=== PATIENT | male | born 1960 | race Caucasian/White ===

== ENCOUNTER 2023-10-04 13:15 | Outpatient (REF) | payer OTHER, SELFPAY | END 2023-10-04 13:16 | disposition home or self-care (01) | LOC: LAB 13:15 | PROVIDERS: Visit Provider Surgery | DX: L98.499 Non-pressure chronic ulcer of skin of other sites with unspecified severity (principal) | CPT/HCPCS: 88305 ==

== ENCOUNTER 2024-12-31 12:46 | Outpatient (OUT) | payer MEDICAID, SELFPAY ==
--- NOTE | 2024-12-31 13:08 | CT_ITS ---
The [address] [address] Patient Name: ARANZA MARINELLI MRN: [id number] date: 1960 Sex: M Assigned Patient Location: CT Current Patient Location: CT Accession/Order Number: [id number] Exam Date: 12/31/2024 16:18 Report Date: 12/31/2024 16:29 At the request of: NKECHI TAO Procedure: CT chest wo con CT Chest without contrast TECHNIQUE: Axial imaging with 2-D reconstruction. The CT exam was performed using one or more the following dose reduction techniques: Automated exposure control, adjustment of the MA and/or Kv according to patient size, or use of the iterative reconstruction technique. History: Prior imaging demonstrating a right apex nodule. Current smoker COMPARISON: None THYROID: Unremarkable TRACHEA AND BRONCHI: Patent ESOPHAGUS: Unremarkable. HEART: Within normal limits PERICARDIAL EFFUSION: None CORONARY ARTERY CALCIFICATION: Present MEDIASTINUM: No adenopathy. No pneumoperitoneum. No mediastinal hematoma. PULMONARY MAYLIN: No hilar mass or adenopathy is seen. THORACIC AORTA Unremarkable LUNG NODULE right apical right upper lobe calcified granuloma measuring up to 1.5 cm. Adjacent superior cavitary lesion with a thin wall and scarring measuring up to 1.7 cm. 6 mm adjacent nodularity. Extensive right apical bullous emphysematous changes. Similar findings compared to the CT of the cervical spine 11/26/2024 LUNGS: There are marked emphysema. Posterior basilar scarring/fibrosis. PLEURAL EFFUSION: None PNEUMOTHORAX: No pneumothorax seen. CHEST WALL: No abnormality AXILLA:Unremarkable BONY STRUCTURES Intact UPPER ABDOMEN: Images of the upper abdomen are noncontributory. CT/CT chest wo con IMPRESSION: Redemonstration of calcified granuloma with adjacent cavitary thin-walled lesion and tiny 6 mm nodular density. Right apical scarring and bullous changes. Marked emphysematous changes. Posterior basilar fibrotic changes. No additional lung nodules. Consider six-month short-term follow-up assessment. Impression dictated by: Aranza Ross M.D. 12/31/2024 4:29 PM Dictation Location: [place] [address] Electronically authenticated by: [id number] Y Date: 12/31/2024 16:29
== END 2024-12-31 12:47 | disposition home or self-care (01) ==
LOC: CT 12:49
PROVIDERS: PCP Nurse Practitioner Family; Visit Provider Nurse Practitioner Family
DX: R91.1 Solitary pulmonary nodule (principal)
CPT/HCPCS: 71250

== ENCOUNTER 2025-05-20 09:50 | Outpatient (OUT) | payer OTHER, SELFPAY ==
--- NOTE | 2025-05-20 09:56 | CT_ITS ---
The [address] [address] Patient Name: ARANZA MARINELLI MRN: [id number] date: 1960 Sex: M Assigned Patient Location: CT Current Patient Location: CT Accession/Order Number: [id number] Exam Date: 05/20/2025 10:01 Report Date: 05/20/2025 10:56 At the request of: NKECHI TAO Procedure: CT chest wo con CT CHEST WITHOUT CONTRAST COMPARISON: 12/31/2024 CLINICAL DATA: Follow-up lung nodularity. Spiral axial unenhanced images were obtained through the chest. Images were reviewed using both narrow and wide window settings. This CT exam was performed using one or more following dose reduction techniques: Automated exposure control, adjustment of the mA and/or kV according to patient size, or use of iterative reconstruction technique. The heart is within normal limits for size. There is no pericardial effusion. Minor coronary disease is seen. No aortic aneurysm is identified. There are small amount of plaque at the aortic arch and proximal great vessels. Similar tiny mediastinal lymph nodes are again visualized. Slight thoracolumbar dextroscoliotic curvature is noted. There are tiny endplate spurs. There is obstructive lung disease with airspace lucencies and subpleural blebs. Scarring is again noted at the right apex. There is also associated calcification and a possible cavitary area, unchanged. There is no developing consolidation or pleural effusion. No pneumothorax is seen. There are similar clustered tiny nodular densities and a calcification within the anterior basilar right upper lobe. A tiny nodular density is again seen within the left lower lobe on axial image 51. There is no new nodularity. Limited cuts through the upper abdomen show no contributory findings. CT/CT chest wo con IMPRESSION: ADVANCED OBSTRUCTIVE LUNG DISEASE. RIGHT APICAL SCARRING WITH ASSOCIATED CALCIFICATION AND POSSIBLE CAVITATION, UNCHANGED FROM THE PRIOR. SIMILAR NODULARITY. Impression dictated by: Margaux Aguilar M.D. 05/20/2025 10:56 AM Dictation Location: [place] [address] Electronically authenticated by: [id number] Y Date: 05/20/2025 10:56
--- OUTSIDE RECORDS SUMMARY | 2025-05-20 09:56 | XMS_ITS | CCD ---
Author Organization [facility] Care Team Providers Care Manager Drive Name Role Phone MORRIS MILLER Admitting Unavailable MAR Clay, MORRIS Attending Unavailable NEELIMA, DR MAIER Primary Care Unavailable BEBO BUTLER Consulting Unavailable MAR Clay, MORRIS Consulting Unavailable ELIZABETH BEDOYA Consulting Unavailable NEELIMA, DR MAIER Primary Care Unavailable SHARMA ., DR CONRAD Barker Admitting Unavailable SHARMA ., DR CONRAD Barker Attending Unavailable SHARMA ., DR CONRAD Barker Consulting Unavailable MARKER ., DR BOJORQUEZ Consulting Unavailable ABRIL CORONADO Consulting Unavailable MAR ., MORRIS Consulting Unavailable EMELI .BEVERLY Consulting Unavailable ASHLEY TRIPATHI Consulting Unavailable RONY .HILDA Consulting Unavailel CHAUHAN, DR KERRY Underwood Admitting Unavailel e MIKEC, DR MAIER Primary Care Unavailable GISSEL, DR KERRY Underwood Attending Unavailel e MAR ., MORRIS Attending Unavailable MAR Clay, MORRIS Consulting Unavailable NEELIMA, DR MAIER Primary Care Unavailable MAR Clay, MORRIS Admitting Unavailable NKECHI TAO Primary Care Physician [phone] NO FAMILY, PHYSICIAN Primary Care Provider Unava ilMD Venkat Mathew Attending Provider NO FAMILY, PHYSICIAN Primary Care Unavailable Venkat iMller Attending Unavailable Venkat Miller Admitting Unavailable Venkat MILLER Attending Unavailable NKECHI TAO Referring Unavailable Venkat MILLER Attending Unavailable KARISSA, FELIX Attending Unavailable KARISSA, FELIX Attending Unavailable KARISSA, FELIX Attending Unavailable KARISSA, FELIX Attending Unavailable KARISSA, FELIX Attending Unavailable KARISSA, FELIX Admitting Unavailable KARISSA, FELIX Attending Unavailable KARISSA, FELIX Attending Unavailable KARISSA, FELIX Admitting Unavailable KARISSA, FELIX Attending Unavailable NO PCP, NO PCP Primary Care Unavailable FER MCGOWAN Attending Unavailable Allergies Allergy Classification Reported Allergen(s) Allergy Type Date of Onset Reaction(s) Facility (1 source) No Known Medication Allergies; Translations: [No Known Medication Allergies] Propensity to adverse reactions (disorder) [facility] Repository (1 source) ALLERGIES NOT ON FILE; Translations: [ALLERGIES NOT ON FILE] Propensity to adverse reactions (disorder) [facility] Repository Medications Current Medications Medication Drug Class(es) Dates Sig (Normalized) Sig (Original) benzonatate 200 mg oral capsule (1 source) Non-narcotic Antitussive Start: 09-13-2024 take 1 capsule by mouth three times daily as needed for cough Benzonatate 200 mg capsule Active 200 MG PO Three times daily as needed for cough 30 September 13, 2024 12:00am predniSONE 20 mg oral tablet (1 source) Start: 09-13-2024 take 2 tablets by mouth once daily Prednisone 20 mg tablet Active 20 MG PO .COMPLEX September 13, 2024 12:00am Take 2 tabs po daily x 5 days Problems Problem Classification Problem Date Documented Date Episodic/Chronic Abdominal hernia (7 sources) Bilateral inguinal hernia, without obstruction or gangrene, recurrent; Translations: [Unilateral femoral hernia, without obstruction or gangrene, not specified as recurrent] Onset: 11-03-2022 Episodic Abdominal pain (4 sources) Unspecified abdominal pain; Translations: [Left lower quadrant pain] Onset: 11-30-2022 Episodic Neoplasms of unspecified nature or uncertain behavior (3 sources) Neoplasm of uncertain behavior of skin; Translations: [Neoplasm of uncertain behavior of skin] Onset: 10-04-2023 Episodic Other aftercare (2 sources) Encounter for follow-up examination after completed treatment for conditions other than malignant neoplasm; Translations: [Encounter for follow-up examination after completed treatment for conditions other than malignant neoplasm] Onset: 12-11-2023 Episodic Other aftercare (2 sources) Encounter for other specified surgical aftercare; Translations: [Encounter for other specified surgical aftercare] Onset: 12-11-2023 Episodic Other nervous system disorders (2 sources) Other acute postprocedural pain; Translations: [Other acute postprocedural pain] Onset: 10-27-2023 Episodic Other non-epithelial cancer of skin (4 sources) Basal cell carcinoma of truncal skin; Translations: [Basal cell carcinoma of skin of other part of trunk] Onset: 10-11-2023 Episodic Other non-traumatic joint disorders (1 source) Pain in unspecified shoulder; Translations: [Pain in unspecified shoulder] Onset: 11-26-2024 Episodic Other non-traumatic joint disorders (2 sources) Shoulder pain Onset: 11-26-2024 Episodic Other nutritional; endocrine; and metabolic disorders (2 sources) Body mass index less than 20 10-04-2023 Episodic Other skin disorders (3 sources) Localized swelling, mass and lump, trunk; Translations: [LOCALIZD SWELLING MASS AND LUMP TRUNK] Onset: 11-02-2022 Episodic Other skin disorders (2 sources) Skin lesion 10-02-2023 Episodic Residual codes; unclassified (1 source) Other specified postprocedural states; Translations: [OTH SPECIFIED POSTPROCEDURAL STATES] Onset: 12-05-2022 Episodic Substance-related disorders (5 sources) Nicotine dependence, cigarettes, uncomplicated; Translations: [Smoker] Onset: 12-05-2022 10-02-2023 Chronic Unclassified (2 sources) Post-op; Translations: [Post-op] Onset: 11-03-2023 Unclassified (2 sources) Consult; Translations: [Consult] Onset: 10-20-2023 Results Test Name Value Interpretation Reference Range Facility CT CERVICAL SPINE WO CONTon 11-26-2024 CT CERVICAL SPINE WO CONT CT CERVICAL SPINE WO CONT Noncontrast cervical spine CT on 11/26/2024 Provided history: Neck pain, radiculopathy Comparison: None Technique: Multiple contiguous 2.5 mm axial images of the cervical spine were obtained. Coronal and sagittal reconstructions were performed. Automated exposure control was utilized. Findings: Vertebral body height and alignment is maintained. Posterior elements are intact with normal alignment. Craniocervical junction is normally aligned. Significant multilevel degenerative disc disease with near complete loss of disc height, endplate osteophytes, endplate sclerosis and uncovertebral degeneration, greatest at C4-C7. Multilevel bilateral facet arthropathy also present. Significant spinal stenosis at C5-C6 with significant narrowing of the left C2-C3, bilateral C3-C4, bilateral C4-C5, bilateral C5-C6 and bilateral C6-C7 neural foramina. Bullous change within the lung apices with a partially calcified and partially visualized nodular density in the right lung apex that measures up to 1.6 cm. Intracranial contents are within normal limits. No significant soft tissue abnormality. IMPRESSION: * Significant multilevel degenerative disc and facet disease with significant spinal and neural foraminal stenoses as detailed. * Partially calcified nodular density in the right lung apex is likely benign. If there are risk factors for malignancy, consider nonemergent chest CT for further evaluation. All CT scans at this facility use dose modulation, iterative reconstruction, and/or weight based dosing when appropriate to reduce radiation dose to as low as reasonably achievable. C1 Finalized by Jose F Lopez MD on 11/26/2024 9:[address] [facility] XR SHOULDER RT MIN 2 VWSon 0 11-26-2024 XR SHOULDER RT MIN 2 VWS XR SHOULDER RT MIN 2 VWS XR SHOULDER RT MIN 2 VWS HISTORY: shoulder pain COMPARISON: None available. IMPRESSION: * No acute fracture or dislocation. * Regularity about the greater trochanter on Grashey view, may be indicative of underlying rotator cuff tendinopathy. Finalized by Keegan Lindsay on 11/26/2024 9:[address] [facility] Office Visiton 12-22-2023 Follow-up visit [id number] Anoop Xavierrey 1960 M Date Provider Department Center 12/22/20[id number] [place] Family History Problem Relation Age of Onset Heart disease Mother Parkinsonism Father Family Status - Relation Status Age at Mother Father Level of Service:37671 [place] POSTOP FOLLOW UP VISIT RELATED TO ORIGINAL PX Reason for Visit and Comments: Follow-up [709156] - Aranza is here for his 10 day follow up from shoulder graph Normal [facility] Office Visiton 12-11-2023 Follow-up visit [id number] DucAnoop lopezrey 1960 M Date Provider Department Center 12/11/2023 [id number] Family History Problem Relation Age of Onset Heart disease Mother Parkinsonism Father Family Status - Relation Status Age at Mother Father Level of Service:34575 [place] POSTOP FOLLOW UP VISIT RELATED TO ORIGINAL PX Reason for Visit and Comments: Follow-up [799410] - s/p 12/05/23 shoulder graft Normal [facility] NURSNOTEon 12-05-2023 NURSNOTE Discharge instructions reviewed with patient fiance at bedside. All questions answered at this time Yuko Sharma RN PACU Normal [facility] OPNOTEon 12-05-2023 OPNOTE Date: 12/05/2023 Location: [facility] OR Name: Aranza Xaiver, : 1960, Diagnosis Pre-op Diagnosis * Basal cell carcinoma (BCC) of skin of right upper extremity including shoulder [C44.612] Post-op Diagnosis * Basal cell carcinoma (BCC) of skin of right upper extremity including shoulder [C44.612] Procedures 4 x 4 cm stsg SPLIT-THICKNESS SKIN GRAFT TO RIGHT SHOULDER FROM RIGHT THIGH 71497 - [place] SPLIT AGRFT T/A/L 1ST 100 CM/&/1% BDY INFT/CHLD Surgeons * Felix Hancock - Primary Procedure Summary Anesthesia: General ASA: II Estimated Blood Loss: Minimal Total IV Fluids: see anesthesia records Drains: * None in log * Staff: Internet Specialist: Edilson Hines RN Scrub Person: Margy Negrete CST Indications: Aranza Xavier is an 63 y.o. male who is having surgery for Basal cell carcinoma (BCC) of skin of right upper extremity including shoulder [C44.612]. Slow healing surgical wound right shoulder. Findings: clean wound Complications: None; patient tolerated the procedure well. Disposition: PACU - hemodynamically stable. Condition: stable Specimens Collected: No specimens collected during this procedure. Attending Attestation: I was present and scrubbed for the entire procedure. Felix Hancock [facility] OPNOTE SPLIT-THICKNESS SKIN GRAFT TO RIGHT SHOULDER FROM RIGHT THIGH (R) Operative Note Date: 12/05/2023 Location: [facility] OR Name: Aranza Xavier, : 1960, Diagnosis Pre-op Diagnosis * Basal cell carcinoma (BCC) of skin of right upper extremity including shoulder [C44.612] Post-op Diagnosis * Basal cell carcinoma (BCC) of skin of right upper extremity including shoulder [C44.612] Procedures SPLIT-THICKNESS SKIN GRAFT TO RIGHT SHOULDER FROM RIGHT THIGH 73502 - [place] SPLIT AGRFT T/A/L 1ST 100 CM/&/1% BDY INFT/CHLD 4 x 4 cm Surgeons * Felix Hancock - Primary Procedure Summary Anesthesia: General ASA: II Estimated Blood Loss: 5 mL Total IV Fluids: see anesthesia records Drains: * None in log * Staff: Internet Specialist: Edilson Hines RN Scrub Person: Margy Negrete, CASHIER GENERAL Indications: Aranza Xavier is an 63 y.o. male who is having surgery for Basal cell carcinoma (BCC) of skin of right upper extremity including shoulder [C44.612]. Procedure Details: The patient was seen in the preoperative area. The risks, benefits, complications, treatment options, non-operative alternatives, expected recovery and outcomes were discussed with the patient. The possibilities of reaction to medication, pulmonary aspiration, injury to surrounding structures, bleeding, recurrent infection, the need for additional procedures, failure to diagnose a condition, and creating a complication requiring transfusion or operation were discussed with the patient. The patient concurred with the proposed plan, giving informed consent. The site of surgery was properly noted/marked if necessary per policy. The patient has been actively warmed in preoperative area. Preoperative antibiotics have been ordered and given within 1 hours of incision. Venous thrombosis prophylaxis have been ordered including bilateral sequential compression devices The patient was seen in the holding area. Consent form was obtained. Was then taken to the operating room . The administration of general anesthesia the patient was intubated uneventfully in his bed. Patient was then placed in the prone position. These were placed intraoperatively to his lower extremities. Patient's right thigh which is chosen to be the donor site and right shoulder were prepped with chlorhexidine and were draped in the usual sterile fashion. The right shoulder surgical wound was debrided using the scratch pad of the Bovie cautery move any fibrous slough and create a inflammatory reaction. Was irrigated and was prepared for grafting. The recipient wound measured 4 x 4 cm. A dermatome was used to harvest 12,000 of an inch split-thickness skin graft the right lateral thigh. Harvested graft was meshed 1-1/2-1 dimensions. Graft was now sutured over the recipient wound on the right shoulder using multiple 3-0 silk sutures. To secure the graft we created a bolster dressing from cotton balls and Xeroform gauze. The bolster dressing was now tied over the graft with the long tail silk sutures. The area was cleaned with wet-to-dry then an island dressing was applied over the bolster dressing. Donor site on the right lateral thigh was injected with local anesthetic using 1% lidocaine with epinephrine. Xeroform gauze Telfa pad ABD pad and an Ryley wrap were applied around the right thigh loosely as a protective dressing. The patient tolerated the procedure very well. He was now returning to his bed. He was awakened and extubated in the operating room then he was transferred back to the recovery room in stable condition. Findings: clean wound Complications: None; patient tolerated the procedure well. Disposition: PACU - hemodynamically stable. Condition: stable Felix Hancock [facility] POCT GLUCOSE METER UNSOLICIT ED RESULTSon 12-05-2023 Glucose [Mass/Vol] 79 mg/dL Normal 70-105 [facility] Comment on above: Order Comment: Waive d Testing in the ED is performed under the ED CLIA certificate #[id number]. Result Comment: ngro nel Performed By: #### L [id number] ####[facility] (BEAKER)[address] [place] [address] Office Visiton 11-24-2023 Follow-up visit [id number] Aranza Xavier 1960 M [facility] Provider Department Center 11/24/2023 [id number] Family History Problem Relation Age of Onset Heart disease Mother Parkinsonism Father Family Status - Relation Status Age at Mother Father Level of Service:40923 [place] OFFICE/OUTPATIENT ESTABLISHED LOW MDM 20 MIN Reason for Visit and Comments: Follow-up [770507] - 2 wk f/u after stich removal [facility] Office Visiton 11-10-2023 Follow-up visit [id number] Aranza Xavier 1960 M [facility] Provider Department Center 11/10/2023 [facility] Family History Problem Relation Age of Onset Heart disease Mother Parkinsonism Father Family Status - Relation Status Age at Mother Father Level of Service:97576 [place] OFFICE/OUTPATIENT ESTABLISHED LOW MDM 20 MIN Reason for Visit and Comments: Post-op [483] - S/P right shoulder 10/27/23 suture removal [facility] Office Visiton 11-03-2023 Follow-up visit [id number] Aranza Xavier 1960 M Date Provider Department Center 11/03/2023 [id number] [place] Family History Problem Relation Age of Onset Heart disease Mother Parkinsonism Father Family Status - Relation Status Age at Mother Father Level of Service:52524 [place] POSTOP FOLLOW UP VISIT RELATED TO ORIGINAL PX Reason for Visit and Comments: Post-op [483] - Aranza is here today for a post op visit for BCC right shoulder, s/p 10/27/23 excision of BCC. Normal [facility] HISTOLOGY - TISSUE EXAMon LAB AP CASE REPORT Normal [facility] Comment on above: Order Comment: Pre-o p diagnosis:Basal cell carcinoma (BCC) of right shoulder [C44.612]STITCH AT 6 O'CLOCK Result Comment: Surg ical Pathology Case: [id number] Authorizing Provider: Felix Hancock MD Collected: 10/27/2023 1153 Ordering Location: [facility] Main Operating Room Received: 10/27/2023 1218 Pathologist: Reina Spaulding MD Intraop: Savi Burger MD Specimen: Skin, right posterior shoulder lesion Performed By: #### L [id number] ####[facility] (BEAKER)[address] [place] [address] LAB AP CLINICAL INFORMATION Normal [facility] Comment on above: Order Comment: Pre-o p diagnosis:Basal cell carcinoma (BCC) of right shoulder [C44.612]STITCH AT 6 O'CLOCK Result Comment: Post -Op Diagnoses C44.612 - Basal cell carcinoma (BCC) of right shoulder [ICD-10-CM] Performed By: #### L [id number] ####[facility] (BEAKER)[address] [place] [address] LAB AP GROSS DESCRIPTION A. Skin. Normal [facility] Comment on above: Order Comment: Pre-o p diagnosis:Basal cell carcinoma (BCC) of right shoulder [C44.612]STITCH AT 6 O'CLOCK Result Comment: Rece ived fresh for frozen section labeled Aranza Xavier, right posterior shoulder lesion is a myrick ovoid excision of skin oriented with a suture at 6:00. The specimen is 5.6 cm from 12-6 o'clock by 5.5 cm, excised up to 0.9 cm. Centrally located on the skin surface is a pink-myrick raised and bulky but focally ulcerated mass, 4.3 x 4.1 cm, raised to 0.6 cm. The 3:00 half of the peripheral margin is inked green and the deep margin is inked yellow; the 9:00 half of the peripheral margin is inked blue and the deep margin black. The ulcerated mass is 0.5 cm from the closest 1:00 peripheral margin and 0.4 cm from the closest superficial 4:00 margin. The 12:00 and 6:00 polar ends are amputated and serially sectioned (representing 11:00-1:00 and 5:00-7:00). The remainder of the specimen is serially sectioned perpendicular to the long axis. On cut surface, the mass is well-defined, up to 0.9 cm in thickness. Centrally, areas extend with in 0.2 cm of the deep margin however this surface is entirely freely mobile. Portions of the mass within the 5:00 aspect appear to extend within the subcutaneous tissue to 0.2 cm from the peripheral margin. Advertising Representative sections are submitted for frozen section in 5 cassettes, to include the closest gross margins. The remainder of the specimen is entirely submitted in sequential order progressing from 12:00 to 6:00. Cassettes: FS1-2 Closest 1:00 margin FS3 Closest 4:00 peripheral margin and closest deep margin FS4-5 Closest 5:00 margin 6-8 12:00 polar end (progressing from 11-) 9-12 Two cross sections, 11:00-1:00 (each bisected) 13-16 Two cross sections, 10:00-2:00 (each bisected) 17-18 Cross section, 9:00-3:00 (bisected) 19-20 Cross section, 9:00-3:00 (bisected, with center in 19 and peripheries in 20) 21 8:00, contiguous with FS3 22-23 Cross section, 8:00-4:00 (bisected) 24-25 7:00, contiguous with FS4 & FS5, respectively 26-27 Cross section, 7:00-5:00 (bisected) 30 6:00 polar end (progressing from 7-5) Reina Salomon, Bozena' Control Technician Performed By: #### L [id number] ####[facility] (BEAKER)[address] [facility] [place] [place] [address] LAB AP INTRAOPERATIVE CONSULTATION A. Skin. [facility] Comment on above: Order Comment: Pre-o p diagnosis:Basal cell carcinoma (BCC) of right shoulder [C44.612]STITCH AT 6 O'CLOCK Result Comment: Resu lted 1:46 PM 10/27/23 Advertising Representative peripheral (1:00, 4-5:00) and deep margins, negative for basal cell carcinoma. [address] to [address] Hancock at 1:28 pm (final call). Intraoperative Consultation by: Savi Burger MD Performed By: #### L [id number] ####[facility] ([facility])[address] [facility] [place] [address] LAB AP MICROSCOPIC DESCRIPTION Microscopic examination performed. [facility] Comment on above: Order Comment: Pre-o p diagnosis:Basal cell carcinoma (BCC) of right shoulder [C44.612]STITCH AT 6 O'CLOCK Performed By: #### L [id number] ####[facility] ([facility] [place] [address] LAB AP REPORT FINAL DIAGNOSIS NARRATIVE [facility] Comment on above: Order Comment: Pre-o p diagnosis:Basal cell carcinoma (BCC) of right shoulder [C44.612]STITCH AT 6 O'CLOCK Result Comment: Skin , right posterior shoulder, excision: - Basal cell carcinoma, nodular and infiltrative growth patterns - Margins clear Performed By: #### L [id number] ####[facility] ([facility] [facility] [address] HPon 10-27-2023 HP History Of Present Illness Aranza Xavier is a 63 y.o. male presenting with Large right posterior shoulder BCC. Past Medical History He has a past medical history of Cancer (CMS/HCC), Hernia, inguinal, left, and Inguinal hernia. Surgical History He has a past surgical history that includes Hernia repair. Social History He reports that he has been smoking cigarettes. He has been smoking an average of 1 pack per day. He has never used smokeless tobacco. He reports current drug use. Drug: Marijuana. He reports that he does not drink alcohol. Family History Family History Problem Relation Name Age of Onset Heart disease Mother Parkinsonism Father Allergies Patient has no known allergies. Medications No medications prior to admission. Review of Systems Patient is hemodynamically stable He is alert and oriented. Last Recorded Vitals Visit Vitals BP 135/82 Pulse 72 Temp 36.1 ???C (97 ???F) (Temporal) Resp 18 Ht 1.702 m (5' 7 ) Wt 55.3 kg (121 lb 14.6 oz) SpO2 98% BMI 19.09 kg/m??? Smoking Status Every Day BSA 1.62 m??? Physical Exam 4.5 x 4.5 cm ulcerated large basal cell carcinoma on the right posterior shoulder. Manage in no infection. Relevant Lab Results No results found for: NA , K , CL , CO2 , BUN , CREATININE , GLUCOSE , CALCIUM , ANIONGAP , EGFR , BCR Relevant Imaging Results No image results found. Assessment/Plan Excision of large AC of the right posterior shoulder with frozen section and coverage with Integra artificial skin. Principal Problem: Basal cell carcinoma (BCC) of right shoulder Was told that frozen section will intend to rule out any deeper peripheral involvements or excision. If the lesion is down to the bone and the patient will be referred to orthopedics to approach that. Alternative will be radiation therapy. Plan is to completely excise the lesion in the operating room with the frozen section today. Once Integra and incorporated the patient may or may not need another split-thickness skin grafting to achieve complete closure. Normal [facility] OPNOTEon 10-27-2023 OPNOTE Date: 10/27/2023 Location: [facility] OR Name: Aranza Xavier, : 1960, Diagnosis Pre-op Diagnosis * Basal cell carcinoma (BCC) of right shoulder [C44.612] Post-op Diagnosis * Basal cell carcinoma (BCC) of right shoulder [C44.612] Procedures EXCISION OF RIGHT POSTERIOR SHOULDER BASAL CELL CARCINOMA WITH FROZEN SECTION EXAMINATION AND INTEGRA APPLICATION- 5.5X5.5 CM 38768 - [place] MOHS TRUNK/ARM/LEG 1ST STAGE 5 BLOCKS Surgeons * Felix Hancock - Primary Procedure Summary Anesthesia: General ASA: III Estimated Blood Loss: None Total IV Fluids: see anesthesia records Drains: none Specimens ID Source Type Tests Collected By Collected At Frozen? Priority Lab ID A Shoulder Tissue HISTOLOGY - TISSUE EXAM Felix Hancock MD 10/27/23 1153 Yes STAT [id number] Description: right posterior shoulder lesion Comment: STITCH AT 6 OCLOCK Implants Type Name Action Serial No. Allograft Tissue DRESSING,BILAYER,2X2 ,5CM - [id number] Implanted Staff: Internet Specialist: Daniel Gomez RN Relief Internet Specialist: Aleah Daigle RN Relief Scrub: Reanna Dey Scrub Person: Margy Negrete CASHIER GENERAL Indications: Aranza Xavier is an 63 y.o. male who is having surgery for Basal cell carcinoma (BCC) of right shoulder [C44.612]. Findings: BCC right posterior shoulder excised. Complications: None; patient tolerated the procedure well. Disposition: PACU - hemodynamically stable. Condition: stable Specimens Collected: Order Name Source Comment Collection Info Order Time HISTOLOGY - TISSUE EXAM Shoulder Pre-op diagnosis: Basal cell carcinoma (BCC) of right shoulder [C44.612] STITCH AT 6 O'CLOCK Collected By: Felix Hancock MD 10/27/2023 12:11 PM Release to Patient Immediately Attending Attestation: I was present and scrubbed for the entire procedure. Felix Hancock [facility] OPNOTE EXCISION OF RIGHT POSTERIOR SHOULDER BASAL CELL CARCINOMA WITH FROZEN SECTION EXAMINATION AND INTEGRA APPLICATION- 5.5X5.5 CM (R) Operative Note Date: 10/27/2023 Location: [facility] OR Name: Aranza Xavier, : 1960, Diagnosis Pre-op Diagnosis * Basal cell carcinoma (BCC) of right shoulder [C44.612] Post-op Diagnosis * Basal cell carcinoma (BCC) of right shoulder [C44.612] Procedures EXCISION OF RIGHT POSTERIOR SHOULDER BASAL CELL CARCINOMA WITH FROZEN SECTION EXAMINATION AND INTEGRA APPLICATION- 5.5X5.5 CM 20229 - OK MOHS TRUNK/ARM/LEG 1ST STAGE 5 BLOCKS Application of 5 x 5 cm Integra Surgeons * Felix Hancock - Primary Procedure Summary Anesthesia: General ASA: III Estimated Blood Loss: None minimal Total IV Fluids: see anesthesia records Drains: None. Specimens ID Source Type Tests Collected By Collected At Frozen? Priority Lab ID A Shoulder Tissue HISTOLOGY - TISSUE EXAM Felix Hancock MD 10/27/23 1153 Yes STAT [id number] Description: right posterior shoulder lesion Comment: STITCH AT 6 OCLOCK Implants Type Name Action Serial No. Allograft Tissue DRESSING,BILAYER,2X2 ,5CM - [id number] Implanted Staff: Internet Specialist: Daniel Gomez RN Relief Internet Specialist: Aleah Daigle RN Relief Scrub: Reanna Dey Scrub Person: Margy Negrete CST Indications: Aranza Xavier is an 63 y.o. male who is having surgery for Basal cell carcinoma (BCC) of right shoulder [C44.612]. Procedure Details: The patient was seen in the preoperative area. The risks, benefits, complications, treatment options, non-operative alternatives, expected recovery and outcomes were discussed with the patient. The possibilities of reaction to medication, pulmonary aspiration, injury to surrounding structures, bleeding, recurrent infection, the need for additional procedures, failure to diagnose a condition, and creating a complication requiring transfusion or operation were discussed with the patient. The patient concurred with the proposed plan, giving informed consent. The site of surgery was properly noted/marked if necessary per policy. The patient has been actively warmed in preoperative area. Preoperative antibiotics are not indicated. Venous thrombosis prophylaxis have been ordered including bilateral sequential compression devices The patient was taken to the operating room in his bed and SCDs were placed. After the administration of general anesthesia he was intubated uneventfully then was placed in a prone position. His left shoulder was then prepped with chlorhexidine and then was draped in the usual sterile fashion. 20ccs of 0.5% marcaine with epinephrine were infiltrated subcutaneously. 15 blade was then used to make an incision respecting the marking and allowing at least 0.5cm free margin. Excision was carried down to subcutaneous tissue to the underlying muscular fascia which appeared uninvolved. Using the electrocautery, a complete excision was done along with hemostasis.l Silk suture was placed at 6 o'clock position and the specimen was sent to pathology for frozen section. While waiting for the frozen section, a purse string suture was placed subdermally using 3.0 Monocryl to minimize the final defect size. The size was brought from 8cm x 8cm to 5.5cm x 4.5cm. 5.5cm integra was taken out of the manufacturing package and soaked in sterile saline for 2 minutes. It was then applied over the defect on the right posterior shoulder and sutured in place using multiple tool silk. The pathologist called back to confirm that all margins were free of residual carcinoma. A bolster dressing was made using cotton balls and Xeroform gauze. This was tied over the integra with the previously left long tails of the silk sutures. A nice bolster dressing was now created to protect the Integra. The operative site was cleaned with wet-to-dry and 4x4 gauze then an island dressing was placed over the bolster dressing. The patient tolerated the procedure very well. He was now awakened after being put back in his bed in the supine position. He was extubated in the operating room and transferred back into the recovery room in stable condition. Findings: large BCC excised This procedure was not performed to treat primary cutaneous melanoma through wide local excision Complications: None; patient tolerated the procedure well. Disposition: PACU - hemodynamically stable. Condition: stable Felix Hancock Normal [facility] POCT GLUCOSE METER UNSOLICIT ED RESULTSon 10-27-2023 Glucose [Mass/Vol] 98 mg/dL Normal 70-105 [facility] Comment on above: Order Comment: Waive d Testing in the ED is performed under the ED CLIA certificate #[id number]. Result Comment: aepp ink Performed By: #### L [id number] ####[facility] ([facility])[address] [place] [address] Consulton 10-20-2023 Consult [id number] Aranza Xavier 1960 M Date Provider Department Center 10/20/2023 [id number] HANCOCK [facility] [place] Family History Problem Relation Age of Onset Heart disease Mother Parkinsonism Father Family Status - Relation Status Age at Mother Father Level of Service:34109 OK OFFICE/OUTPATIENT NEW LOW MDM 30 MINUTES Reason for Visit and Comments: Consult [524] - Aranza is here today for a consult visit for basal cell carcinoma of right shoulder. Normal [facility] Ambulatory Visit Summaryon 0 10-11-2023 Ambulatory Visit Summary ARANZA XAVIER :1960 Visit Date:10/11/2023 Ambulatory Visit Instructions Your Care Team Attending Physician - PARRIS MORALES, Venkat Thornton Primary Care Physician - NKECHI TAO CNP Procedures Performed Incisional biopsy (10/04/2023), Repair of left inguinal hernia, Repair of recurrent right inguinal hernia, Repair of right inguinal hernia. Allergies No Known Allergies No Known Medication Allergies Problems Ongoing - Any problem that you are currently receiving treatment for. BMI less than 19,adult Neoplasm of uncertain behavior of skin of back Skin lesion of back Smoker Patient Survey You may receive a survey via text or e-mail asking about your office visit. Please share your experience with us by completing your survey. We appreciate your feedback and thank you for choosing us for your care. Normal [facility] General Surgery Office/Clini c Noteon 10-11-2023 General Surgery Office/Clinic Note Chief Complaint follow up incisional biopsy HPI Staff 7 day post in-office incisional biopsy right back lesion. Reports moderate soreness. Denies bleeding. Drainage unchanged. Sutures intact. History of Present Illness 1 week s/p biopsy of large, ulcerated chronic lesion right upper back; pathology with invasive basal cell carcinoma; patient referred to [facility] Plastic surgery for treatment; Review of Systems ROS - Provider Constitutional: no fever, no sweats, no weight loss. Eyes: no glasses, no blurred vision, no visual loss. ENMT: no dentures, no hoarseness, no swallowing difficulties, no hearing loss, no ear infection(s), no nose bleeds. Cardiovascular: normal blood pressure, no chest pain, regular heartbeat, no heart murmur. Respiratory: no shortness of breath, no cough, no asthma, no wheezing. Gastrointestinal: no nausea, no vomiting, no diarrhea, no constipation, no blood in stool, no change in bowel habits, no abdominal pain, no hepatitis. Genitourinary: no kidney stones, no urine infection, no dysuria. Musculoskeletal: no pain, no weakness. Skin: no changing moles, no rash, no skin lumps. Neurologic: no seizures, no epilepsy, no headache. Psychiatric: no emotional or psychiatric problem. Heme/Lymph: no bleeding problems, no anemia, no blood clots, no transfusions. Allergy/Immunologic: no swollen lymph nodes/glands, no IV drug abuse. Other: Additional ROS info: Except as noted in the above Review of Systems and in the History of Present Illness, all other systems have been reviewed and are negative or noncontributory. Physical Exam skin: incision well-healed at edge of large ulcerated lesion; no bleeding or drainage. Assessment/Plan 1. Basal cell carcinoma of upper back (C44.519: Basal cell carcinoma of skin of other part of trunk) sutures removed; patient referred to Plastic surgery at [facility]; call with problems/questions. Follow-up No qualifying data available Problem List/Past Medical History Ongoing Basal cell carcinoma of upper back BMI less than 19,adult Neoplasm of uncertain behavior of skin of back Skin lesion of back Smoker Historical No qualifying data Procedure/Surgical History Incisional biopsy (10/04/2023), Repair of left inguinal hernia, Repair of recurrent right inguinal hernia, Repair of right inguinal hernia. Medications No active medications Allergies No Known Allergies No Known Medication Allergies Social History Alcohol - Denies Alcohol Use, 10/04/2023 Substance Abuse Current, Marijuana, 1-2 times per week, 10/04/2023 Tobacco 10 or more cigarettes (1/2 pack or more)/day in last 30 days Tobacco Use:. Never Smokeless Tobacco Use:. Cigarettes, 1 per day. Started age 18.0 Years. Yes, 10/04/2023 Family History Heart disease: Brother. Immunizations Vaccine Date Status Comments influenza virus vaccine, inactivated - Not Given Patient Refuses Normal [facility] Comment on above: Result Comment: Elec tronically Signed By: PARRIS MORALES, Venkat Ozuna\Date and Time Signed: 10/11/23 15:11 EST Pathology Noteon 10-11-2023 Pathology Note [id number]#[address] [facility] Facesheeton 10-05-2023 Facesheet [id number]# 1.00TIFF Normal [facility] Ambulatory Visit Summaryon 0 10-04-2023 Ambulatory Visit Summary DUC, ARANZA A :1960 Visit Date:10/04/2023 Ambulatory Visit Instructions Your Care Team Attending Physician - PARRIS MORALES, Venkat Thornton Primary Care Physician - AISLINN MCCULLOUGH, NKECHI Barkley Referring Physician - AISLINN MCCULLOUGH, NKECHI Barkley Procedures Performed Repair of left inguinal hernia, Repair of recurrent right inguinal hernia, Repair of right inguinal hernia. Discharge Vitals Heart Rate (Peripheral) 72 Respiratory Rate 16 Blood Pressure 120/78 Height 172.2 cm Height 68 in Weight 54.4 kg Weight 119.68 lb BMI 18.35 Medications and Immunizations Administered Not Given influenza virus vaccine, inactivated, Patient Refuses Allergies No Known Allergies No Known Medication Allergies Problems Ongoing - Any problem that you are currently receiving treatment for. BMI less than 19,adult Skin lesion of back Smoker Patient Survey You may receive a survey via text or e-mail asking about your office visit. Please share your experience with us by completing your survey. We appreciate your feedback and thank you for choosing us for your care. [facility] Tevin 10-04-2023 L Specimen: [id number] Received: 10/05/23 Status: PAULINE Godfrey Num: [id number] Spec Type: Surgical Subm Dr: Venkat Miller MD FACS Tissues: A Skin-Other than Cyst, tag, debridement or plastic repair (RT SHOULDER) Procedures: HE, Gross/Micro L4 Age/ Patient Sex Location Account Attending Physician DucBennie ward 63/M LABELL [id number] Venkat Miller MD FACS SPEC NUM: [id number] RECD: 10/05/23 STATUS: PAULINE GODFREY NUM: [id number] WILMAN: 10/04/[address]: Venkat Miller MD FACS ENTERED: 10/05/23 [facility] DR: Yo Bettencourt SPEC TYPE: Surgical DEPT: STEVAN RAND ORDERED: HE, Gross/Micro L4 ORDERED: HE, Gross/Micro L4 Pathological Diagnosis Skin Lesion, Right Shoulder,, Biopsy: Basal Cell Carcinoma, Infiltrative Type. - Tumor extends To The Biopsy Margin. Clinical Information 10-year history of enlarging ulcerated lesion, tender, ulcerated skin lesion with intermittent scant cloudy drainage Gross Description Received in formalin labeled with the patient's name, date of and R shoulder is an unoriented 1.1 x 0.7 cm ellipse of myrick skin with an excisional depth of 0.3 cm. The skin surface is vaguely lobulated with no definitive discrete lesions identified. The margin is inked green. The specimen is serially sectioned. Entirely submitted in one cassette labeled A1. CPT Codes 66692 -------- -------- Specimen: [id number] Received: 10/05/23 Status: PAULINE Godfrey Num: [id number] Spec Type: Surgical Subm Dr: Venkat Miller MD FACS Tissues: A Skin-Other than Cyst, tag, debridement or plastic repair (RT SHOULDER) Procedures: Papi MATHEWS/Benson Granado -------- Patient: Bennie Xavier [id number] (Continued) -------- Signed (signature on file) Litzy Karimi MD 10/10/23 2239 Normal [facility] Physician Referralon 024 Physician Referral [id number] [facility] CBC AUTO DIFFon 11-30-2022 BASO # 0.1 103/ul Normal 0.0-0.1 [facility] Comment on above: Performed By: #### C BC #### [facility] [address] [place] [address] Dr. Arturo Swain Basophils/100 WBC (Bld) 0.8 % Normal 0.2-2.0 [facility] Comment on above: Performed By: #### C BC #### [facility] [address] [address] [address] Arturo Swain EO # 1.3 103/ul Critically high 0.0-0.7 [facility] Comment on above: Performed By: #### C BC #### [facility] [address] [place] [address] Dr. Arturo Swain Eosinophils/100 WBC (Bld) 8.4 % Critically high 0.9-7.0 [facility] Comment on above: Performed By: #### C BC #### [facility] [address] [address] [address] Arturo Swain Erythrocyte distribution width (RBC) [Ratio] 12.9 % Normal 11.0-15.0 [facility] Comment on above: Performed By: #### C BC #### [facility] [address] [place] [address] Dr. Arturo Swain Hematocrit (Bld) [Volume fraction] 36.8 % Critically low 42.0-54.0 [facility] Comment on above: Performed By: #### C BC #### [facility] [address] [address] [address] Arturo Swain Hemoglobin (Bld) [Mass/Vol] 12.3 g/dL Critically low 14.0-18.0 [facility] Comment on above: Performed By: #### C BC #### [facility] [address] [address] [address] Arturo Swain IG # 0.07 10e3/ul Critically high 0.00-0.03 [facility] Comment on above: Performed By: #### C BC #### [facility] [address] [address] [address] Arturo Swain IG % 0.4 % Normal 0.0-0.5 [facility] Comment on above: Performed By: #### C BC #### [facility] [address] [place] [address] Dr. Arturo Swain LYMPH # 1.5 103/ul Normal 1.2-3.8 [facility] Comment on above: Performed By: #### C BC #### [facility] [address] [place] [address] Dr. Arturo Swain Lymphocytes/100 WBC (Bld) 9.4 % Critically low 20.5-60.0 [facility] Comment on above: Performed By: #### C BC #### [facility] [address] [place] [address] Dr. Arturo Swain MANUAL DIFF REQ NO Normal [facility] Comment on above: Performed By: #### C BC #### [facility] [address] [address] [address] Arturo Swain MCH (RBC) [Entitic mass] 29.1 pg Normal 25.9-34.0 [facility] Comment on above: Performed By: #### C BC #### [facility] [address] [address] [address] Arturo Swain MCHC (RBC) [Mass/Vol] 33.4 g/dL Normal 29.9-35.2 [facility] Comment on above: Performed By: #### C BC #### [facility] [id number] Arturo Swain MCV (RBC) [Entitic vol] 87.0 fL Normal 80.0-94.0 [facility] Comment on above: Performed By: #### C BC #### [facility] [id number] Arturo Swain MONO # 1.4 103/ul Critically high 0.3-0.8 [facility] Comment on above: Performed By: #### C BC #### [facility] [address] [address] [address] Arturo Swain Monocytes/100 WBC (Bld) 8.8 % Normal 1.7-12.0 [facility] Comment on above: Performed By: #### C BC #### [facility] [address] [address] [address] Arturo Swain NEUT # 11.5 103/ul Critically high 1.4-6.5 [facility] Comment on above: Performed By: #### C BC #### [facility] [address] [address] [address] Arturo Swain Neutrophils/100 WBC (Bld) 72.2 % Normal 43.0-75.0 [facility] Comment on above: Performed By: #### C BC #### [facility] [id number] Arturo Swain Platelet mean volume (Bld) [Entitic vol] 8.5 fL Critically low 9.5-13.5 [facility] Comment on above: Performed By: #### C BC #### [facility] [address] [place], [place] [id number] Dr. Arturo Swain PLT 327 103/ul Normal 150-450 [facility] Comment on above: Performed By: #### C BC #### [facility] [id number] Arturo Swain RBC 4.23 106/ul Critically low 4.70-6.10 [facility] Comment on above: Performed By: #### C BC #### [facility] [id number] Arturo Swain WBC 15.9 103/ul Critically high 4.0-11.0 [facility] Comment on above: Performed By: #### C BC #### [facility] [address] [place] [address] Dr. Arturo Swain MAGNESIUMon 11-30-2022 Magnesium [Mass/Vol] 1.7 mg/dL Critically low 1.8-2.4 [facility] Comment on above: Performed By: #### M G, BMP #### [facility] [address] [place] [address] Dr. Arturo Swain PROF CHEM 8 (BAS METB)on Anion gap [Moles/Vol] 14.0 mmol/L Normal [facility] Comment on above: Performed By: #### M G, BMP #### [facility] [address] [place] [address] Dr. Arturo Swain Calcium [Mass/Vol] 8.3 mg/dL Critically low 8.5-10.1 [facility] Comment on above: Performed By: #### M G, BMP #### [facility] [address] [place] [address] Dr. Arturo Swain Chloride [Moles/Vol] 103 mmol/L Normal 98-107 [facility] Comment on above: Performed By: #### M G, BMP #### [facility] [address] [place] [address] Dr. Arturo Swain CO2 [Moles/Vol] 22.9 mmol/L Normal 21.0-32.0 [facility] Comment on above: Performed By: #### M G, BMP #### [facility] [address] [place] [address] Dr. Arturo Swain Creatinine [Mass/Vol] 1.04 mg/dL Normal 0.70-1.30 [facility] Comment on above: Performed By: #### M G, BMP #### [facility] [address] [place] [address] Dr. Arturo Swain EGFR-AF COMORAN >60 Normal >=60 [facility] Comment on above: Performed By: #### M G, BMP #### [facility] [address] [place] [address] Dr. Arturo Swain EGFR-NON AF COMORAN >60 Normal >=60 [facility] Comment on above: Performed By: #### M G, BMP #### [facility] [address] [address] [address] Arturo Swain Glucose [Mass/Vol] 87 mg/dL Normal 74-106 [facility] Comment on above: Performed By: #### M G, BMP #### [facility] [address] [place] [address] Dr. Arturo Swain Potassium [Moles/Vol] 3.9 mmol/L Normal 3.5-5.1 [facility] Comment on above: Performed By: #### M G, BMP #### [facility] [address] [place] [address] Dr. Arturo Swain Sodium [Moles/Vol] 136 mmol/L Normal 136-145 [facility] Comment on above: Performed By: #### M G, BMP #### [facility] [address] [place] [address] Dr. Arturo Swain Urea nitrogen [Mass/Vol] 19.0 mg/dL Critically high 7.0-18.0 [facility] Comment on above: Performed By: #### M G, BMP #### [facility] [address] [place] [address] Dr. Arturo Swain Urea nitrogen/Creatinine [Mass ratio] 18.3 mg/mg Normal [facility] Comment on above: Performed By: #### M G, BMP #### [facility] [address] [place] [address] Dr. Arturo Swain CBC AUTO DIFFon 11-29-2022 BASO # 0.1 103/ul Normal 0.0-0.1 [facility] Comment on above: Performed By: #### C BC #### [facility] [address] [place] [address] Dr. Arturo Swain Basophils/100 WBC (Bld) 0.7 % Normal 0.2-2.0 [facility] Comment on above: Performed By: #### C BC #### [facility] [address] [place] [address] Dr. Arturo Swain EO # 0.6 103/ul Normal 0.0-0.7 [facility] Comment on above: Performed By: #### C BC #### [facility] [address] [place] [address] Dr. Arturo Swain Eosinophils/100 WBC (Bld) 3.1 % Normal 0.9-7.0 [facility] Comment on above: Performed By: #### C BC #### [facility] [address] [place] [address] Dr. Arturo Swain Erythrocyte distribution width (RBC) [Ratio] 12.8 % Normal 11.0-15.0 [facility] Comment on above: Performed By: #### C BC #### [facility] [address] [place] [address] Dr. Arturo Swain Hematocrit (Bld) [Volume fraction] 41.9 % Critically low 42.0-54.0 [facility] Comment on above: Performed By: #### C BC #### [facility] [address] [place] [address] Dr. Arturo Swain Hemoglobin (Bld) [Mass/Vol] 14.0 g/dL Normal 14.0-18.0 [facility] Comment on above: Performed By: #### C BC #### [facility] [address] [place] [address] Dr. Arturo Swain IG # 0.10 10e3/ul Critically high 0.00-0.03 [facility] Comment on above: Performed By: #### C BC #### [facility] [address] [place] [address] Dr. Arturo Swain IG % 0.5 % Normal 0.0-0.5 [facility] Comment on above: Performed By: #### C BC #### [facility] [address] [place] [address] Dr. Arturo Swain LYMPH # 1.4 103/ul Normal 1.2-3.8 [facility] Comment on above: Performed By: #### C BC #### [facility] [address] [address] [address] Arturo Swain Lymphocytes/100 WBC (Bld) 7.8 % Critically low 20.5-60.0 [facility] Comment on above: Performed By: #### C BC #### [facility] [address] [address] [address] Arturo Swain MANUAL DIFF REQ NO Normal [facility] Comment on above: Performed By: #### C BC #### [facility] [address] [address] [address] Arturo Swain MCH (RBC) [Entitic mass] 29.0 pg Normal 25.9-34.0 [facility] Comment on above: Performed By: #### C BC #### [facility] [address] [place] [address] Dr. Arturo Swain MCHC (RBC) [Mass/Vol] 33.4 g/dL Normal 29.9-35.2 [facility] Comment on above: Performed By: #### C BC #### [facility] [address] [place] [address] Dr. Arturo Swain MCV (RBC) [Entitic vol] 86.7 fL Normal 80.0-94.0 [facility] Comment on above: Performed By: #### C BC #### [facility] [address] [place] [address] Dr. Arturo Swain MONO # 1.5 103/ul Critically high 0.3-0.8 [facility] Comment on above: Performed By: #### C BC #### [facility] [address] [place] [address] Dr. Arturo Swain Monocytes/100 WBC (Bld) 8.4 % Normal 1.7-12.0 [facility] Comment on above: Performed By: #### C BC #### [facility] [address] [place] [address] Dr. Arturo Swain NEUT # 14.5 103/ul Critically high 1.4-6.5 [facility] Comment on above: Performed By: #### C BC #### [facility] [address] [address] [address] Arturo Swain Neutrophils/100 WBC (Bld) 79.5 % Critically high 43.0-75.0 [facility] Comment on above: Performed By: #### C BC #### [facility] [address] [address] [address] Arturo Swain Platelet mean volume (Bld) [Entitic vol] 8.6 fL Critically low 9.5-13.5 [facility] Comment on above: Performed By: #### C BC #### [facility] [address] [address] [address] Arturo Swain PLT 380 103/ul Normal 150-450 [facility] Comment on above: Performed By: #### C BC #### [facility] [address] [place] [address] Dr. Arturo Swain RBC 4.83 106/ul Normal 4.70-6.10 [facility] Comment on above: Performed By: #### C BC #### [facility] [address] [place] [address] Dr. Arturo Swain WBC 18.3 103/ul Critically high 4.0-11.0 [facility] Comment on above: Performed By: #### C BC #### [facility] [address] [place] [address] ABD/PELV W CONon 11-30-19 CT ABD/PELV W CON EXAM: CT ABD/PELV W CON HISTORY: UNSPECIFIED ABDOMINAL PAIN COMPARISON: None. TECHNIQUE: Axial CT imaging was performed through the abdomen and pelvis with intravenous contrast. Multiplanar reformats were performed. Dose reduction techniques were achieved by using automated exposure control and/or adjustment of mA and/or kV according to patient size and/or use of iterative reconstruction technique. FINDINGS: Lung bases: Lung bases are clear. No pleural effusion. There is bilateral centrilobular emphysema. GI upper: Unremarkable. Liver: Normal size and contour. Gallbladder: No significant abnormality. No cholelithiasis. Biliary system: No intra or extrahepatic biliary ductal dilatation. Spleen: Normal size. Pancreas: Unremarkable. Adrenal glands: Normal adrenal glands. Kidneys/ureters: Normal contours. No hydronephrosis. No nephrolithiasis or ureterolithiasis. Vessels: No aneurysm. Lymph Nodes: No lymphadenopathy. Small bowel: No wall thickening or dilatation. Colon: No wall thickening or dilatation. Appendix: The appendix is not distended and filled with air which communicate with the linear pneumoperitoneum in the mid abdomen. (Series 3, image [id number]). Peritoneal cavity: There is linear pneumoperitoneum,exte nding from the appendix into the mid abdomen.There is an amorphous rim-enhancing fluid collection in the right paracolic gutter, extending to the mid to lower abdomen/pelvic, measuring 2.7 x 8 cm (series 3, image [id number]), representing ruptured acute appendicitis with abscess formation. Lower : Unremarkable. Bones: No acute bony abnormality. Soft tissues: Status post right inguinal hernia repair. Fat stranding is seen in this region, postoperative changes. Additional findings: None. IMPRESSION: Evidence of ruptured acute appendicitis with abscess formation as described above. Critical results were NOTIFIED by TELEPHONE BY Dr. Ashley Tripathi MD to At 11/29/2022 7:00 PM EDT. Electronically authenticated by: ASHLEY TRIPATHI Date: 2022-11-29 19:44 Normal [facility] LACTATE/LACTIC ACIDon 2022 Lactate [Moles/Vol] 1.0 mmol/L Normal 0.4-2.0 [facility] Comment on above: Performed By: #### L ACT #### [facility] [address] [address] [address] Arturo Swain Lactate [Moles/Vol] 1.5 mmol/L Normal 0.4-2.0 [facility] Comment on above: Performed By: #### L ACT #### [facility] [address] [address] [address] Arturo Swain PROF CHEM 8 (BAS METB)on Anion gap [Moles/Vol] 13.7 mmol/L Normal [facility] Comment on above: Performed By: #### B MP #### [facility] [address] [address] [address] Arturo Swain Calcium [Mass/Vol] 9.4 mg/dL Normal 8.5-10.1 [facility] Comment on above: Performed By: #### B MP #### [facility] [address] [address] [address] Arturo Swain Chloride [Moles/Vol] 100 mmol/L Normal 98-107 [facility] Comment on above: Performed By: #### B MP #### [facility] [address] [address] [address] Arturo Swain CO2 [Moles/Vol] 24.2 mmol/L Normal 21.0-32.0 [facility] Comment on above: Performed By: #### B MP #### [facility] [address] [address] [address] Arturo Swain Creatinine [Mass/Vol] 1.10 mg/dL Normal 0.70-1.30 [facility] Comment on above: Performed By: #### B MP #### [facility] [address] [place] [address] Dr. Arturo Swain EGFR-AF COMORAN >60 Normal >=60 [facility] Comment on above: Performed By: #### B MP #### [facility] [address] [address] [address] Arturo Swain EGFR-NON AF COMORAN >60 Normal >=60 [facility] Comment on above: Performed By: #### B MP #### [facility] [address] [address] [address] Arturo Swain Glucose [Mass/Vol] 117 mg/dL Critically high 74-106 [facility] Comment on above: Performed By: #### B MP #### [facility] [address] [address] [address] Arturo Swain Potassium [Moles/Vol] 3.9 mmol/L Normal 3.5-5.1 [facility] Comment on above: Performed By: #### B MP #### [facility] [address] [address] [address] Arturo Swain Sodium [Moles/Vol] 134 mmol/L Critically low 136-145 [facility] Comment on above: Performed By: #### B MP #### [facility] [address] [place], [place] [address] Dr. Arturo Swain Urea nitrogen [Mass/Vol] 25.0 mg/dL Critically high 7.0-18.0 [facility] Comment on above: Performed By: #### B MP #### [facility] [address] [place], [place] [address] Dr. Arturo Swain Urea nitrogen/Creatinine [Mass ratio] 22.7 mg/mg Normal [facility] Comment on above: Performed By: #### B MP #### [facility] [address] [address] [address] Arturo Swain Vital Signs Date Time Vital Sign Value Performing Clinician Faci lity 09-13-2024 10:16-0500 Body height 167.64 cm [facility] 09-13-2024 10:16-0500 Body mass index (BMI) [Ratio] 20.1 kg/m2 [facility] 09-13-2024 10:16-0500 Body temperature 98.5 [degF] [facility] 09-13-2024 10:16-0500 Body weight 56.69 kg [facility] 09-13-2024 10:16-0500 Diastolic blood pressure 73 mm[Hg] [facility] 09-13-2024 10:16-0500 Heart rate 83 /min [facility] 09-13-2024 10:16-0500 Respiratory rate 18 /min [facility] 09-13-2024 10:16-0500 SaO2% (BldA) [Mass fraction] 98 % [facility] 09-13-2024 10:16-0500 Systolic blood pressure 109 mm[Hg] [facility] 10-04-2023 13:05-0500 Blood Pressure Location Venkat MILLER [facility] 10-04-2023 13:05-0500 Diastolic blood pressure 78 mm[Hg] Venkat MILLER [facility] 10-04-2023 13:05-0500 Heart rate 72 /min Venkat MILLER [facility] 10-04-2023 13:05-0500 Respiratory rate 16 /min Venkat MILLER [facility] 10-04-2023 13:05-0500 Systolic blood pressure 120 mm[Hg] Venkat MILLER [facility] Encounters Encounter Date Encounter Type Care Provider Facility Start: 11-26-2024 End: 11-26-2024 Emergency department patient visit NO PCP NO PCP [facility] Start: 09-13-2024 End: 09-13-2024 ambulatory [facility] Work Phone: Start: 09-13-2024 End: 09-13-2024 Patient encounter procedure [facility] Physician [facility] Work Phone: Start: 12-22-2023 End: 12-22-2023 ambulatory [facility] Start: 12-11-[address] [facility] Start: 12-05-2023 End: 12-05-2023 ambulatory [facility] Start: 11-24-2023 End: 11-24-2023 ambulatory [facility] Start: 11-10-2023 End: 11-10-2023 ambulatory [facility] Start: 11-03-2023 End: 11-03-2023 ambulatory [facility] Start: 10-27-2023 End: 10-27-2023 ambulatory [facility] Start: 10-20-2023 End: 10-20-2023 ambulatory [facility] Start: 10-11-2023 End: 10-12-2023 ambulatory Venkat MILLER Facility: [facility] Start: 10-11-2023 End: 10-11-2023 Patient encounter procedure Venkat MILLER General [facility] Start: 10-04-2023 End: 10-04-2023 ambulatory PHYSICIAN NO FAMILY Facility:[facility] Start: 10-04-2023 End: 10-05-2023 ambulatory PHYSICIAN NO [facility] Work Phone: Start: 10-04-2023 End: 10-04-2023 Departed Referred PHYSICIAN [facility] Start: 10-04-2023 End: 10-04-2023 Patient encounter procedure Venkat MILLER [facility] Start: 09-21-2023 ambulatory Venkat MILLER Facility:[facility] [place] Start: 11-30-2022 End: 11-30-2022 Evaluation and management of inpatient DR DOCTOR ORTEZ Facility:[facility] Start: 11-11-2022 End: 11-11-2022 ambulatory MORRIS MANUEL . Facility:[facility] Start: 11-10-2022 Encounter for preprocedural cardiovascular examination MORRIS MANUEL . [facility] Start: 11-07-2022 End: 11-08-2022 ambulatory MORRIS MANUEL . Facility:[facility] Start: 11-07-2022 End: 11-08-2022 Encounter for preprocedural cardiovascular examination MORRIS MANUEL . Facility:[facility] Start: 11-02-2022 End: 11-02-2022 ambulatory HILDA URIBE . Facility: Procedures Date Procedure Procedure Detail Performing Clinician Start: 11-24-2023 Follow-up visit Follow-up FELIX HANCOCK Start: 10-04-2023 Incisional biopsy Cale MILLER Comment on above: right upper back Repair of left ingui nal hernia Venkat ARENASL Repair of recurrent right inguinal hernia Venkat MILLER Repair of right ingu inal hernia Venkat ARENASL Immunizations Immunization Date Immunization Notes Care Provider Fa cility NEGATED: Highlighted row has not occurred!10-04-2023 influenza virus vaccine, unspecified formulation Venkat MILLER [facility] Payers Date Payer Category Payer Self-pay 1960 Unknown [id number] [id number] [id number] 1960 Unknown [id number] 2.16.84 [id number] 1960 Unknown [id number] 2.16.84 [id number] 1960 Unknown [id number] 2.16.84 [id number] 1960 Unknown [id number] 2.16.8 [id number] 1960 Unknown [id number] 2.16.8 [id number] 1960 Unknown [id number] [id number] 1957 Medicaid [id number] Social History Date Type Detail Facility Start: 10-04-2023 Tobacco smoking status Heavy t obacco smoker (finding) [facility] Tobacco smoking status Never Gener [facility] Sex Assigned At Male [facility] Start: 1960 Sex Assigned At Male [facility] Start: 09-13-2024 [facility] Start: 09-13-2024 Sex Male (finding) [facility] Functional Status Date Assessment Result Facility 10-04-2023 Functional Status N/A [facility] Clinical Notes 10-04-2023 to 12-22-2023 Note Date & Type Note Facility 12-22-2023 Note Attestation signed by Felix Hancock MD at 12/22/2023 2:24 PM As the teaching physician, I have personally performed or re-performed the history of present illness, physical exam and medical decision making activities of the encounter and verified the medical student's documentation. I made pertinent changes as necessary to ensure accurate documentation. Subjective Patient ID: Aranza Xavier is a 63 y.o. male who presents for a 10-day follow up of a right posterior shoulder graft from basal cell carcinoma. Chief complaint: 10-day follow up of skin graft HPI Aranza Xavier is a 63 y.o. male who presents for a 10-day follow up of a right posterior shoulder graft from basal cell carcinoma. Skin graft was taken from right anterior thigh. Patient reports no complications post-surgery. He has been dressing the wound daily. Objective Physical Exam The posterior shoulder graft has healed well with no signs of infection. Graft shows 100% take. There is a layer of dry skin to be removed. Sutures can be removed today. The donor site on the right anterior thigh has also healed well. Gauze was removed in clinic and he will need to continue dressing with Vaseline. Assessment/Plan Sutures were removed in clinic. Patient was encouraged to see a liquor stores and agencies supervisor annually to rule out future skin cancers. Follow up as needed. Call with any concerns. Jacquie Cabello MS3 12/22/23 I was present during the visit and I agree with the treatment plan. [facility] 12-11-2023 Note Subjective Patient ID: Aranza Xavier is a 63 y.o. male. HPI The patient is here for a follow-up. Week he underwent split-thickness skin grafting to his right shoulder surgical wound. Graft after removing the bolster, looks great with 100% take. No signs of infection. Xeroform gauze remains adherent to the donor site on the right lateral thigh. It is wrapped with ABD pads and an Ryley wrap. Review of Systems And has no complaints and his other systems were negative. Objective Physical Exam Percent take of the skin graft with no infection on the right shoulder wound. Assessment/Plan There are no diagnoses linked to this encounter. Bolster dressing was removed. Was asked to change the dressing using a Xeroform gauze 4 x 4 gauze and tape's every days. Keep the right thigh wound wrapped. Open it to dry to air at home. Xeroform gauze on the right thigh will follow-up 12 to 14 days later after the surgery. Will see him next week for suture removal and another follow-up. [facility] 12-05-2023 Note Patient: Aranza lopez Procedure Summary Date: 12/05/23 Room / Location: [facility] OPERATING ROOM 01 / [facility] Operating Room Anesthesia Start: 1249 Anesthesia Stop: 1414 Procedure: SPLIT-THICKNESS SKIN GRAFT TO RIGHT SHOULDER FROM RIGHT THIGH (Right) Diagnosis: Basal cell carcinoma (BCC) of skin of right upper extremity including shoulder (Basal cell carcinoma (BCC) of skin of right upper extremity including shoulder [C44.612]) Surgeons: Felix Hancock MD Responsible Provider: Meng Huerta MD Anesthesia Type: general ASA Status: 2 Anesthesia Type: general Vitals Value Taken Time BP 120/80 12/05/23 1415 Temp 36 12/05/23 1415 Pulse 75 12/05/23 1415 Resp 18 12/05/23 1415 SpO2 100 12/05/23 1415 Anesthesia Post Evaluation Patient location during evaluation: PACU Patient participation: complete - patient participated Level of consciousness: sleepy but conscious and awake and alert Pain management: adequate Airway patency: patent Cardiovascular status: acceptable Respiratory status: acceptable Hydration status: acceptable Patient is hemodynamically stable and is able to be discharged from PACU per anesthesia protocol. No notable events documented. [facility] 12-05-2023 Note Airway Date/Time: 12/05/2023 1:03 PM Urgency: elective Airway not difficult General Information and Staff Patient location during procedure: OR Anesthesiologist: Meng Huerta MD Resident/CARDIAC CATHETERIZATION TECHNOLOGIST/CAA: Dominik Jacques MD Performed: resident/CARDIAC CATHETERIZATION TECHNOLOGIST/CAA Indications and Patient Condition Indications for airway management: anesthesia Spontaneous Ventilation: absent Sedation level: deep Preoxygenated: yes Patient position: sniffing Mask difficulty assessment: 1 - vent by mask Planned trial extubation Final Airway Details Final airway type: endotracheal airway Successful airway: ETT Cuffed: yes Successful intubation technique: video laryngoscopy Facilitating devices/methods: intubating stylet Endotracheal tube insertion site: oral Blade: Day Blade size: #3 ETT size (mm): 7.5 Cormack-Lehane Classification: grade I - full view of glottis Placement verified by: chest auscultation and capnometry Measured from: lips ETT to lips (cm): 22 Number of attempts at approach: 1 [facility] 12-05-2023 Note This report has been cancelled. [facility] 12-05-2023 Note H and P pre op Patient ID: Aranza Xavier is a 63 y.o. male who presents for Follow-up ( 2 wk f/u after stich removal). HPI: Patient presents for his skin grafting. He is 4 weeks s/p BCC excision of the right posterior shoulder with integra application and clear margins. He has been dressing the wound daily with packed saline soaked gauze then dressed with a 4x4. T the wound appears to be healing well. The wound bed is covered with healthy granulation tissue. The integra remains intact. The wound is free of infection or drainage. He would be an excellent candidate for a split thickness skin graft with donor site from the right thigh. The procedure was explained to the patient. He is agreeable. Objective Visit Vitals BP 147/77 (BP Location: Right arm, Patient Position: Sitting, BP Cuff Size: Adult) Pulse 75 Temp 36.7 ???C (98 ???F) (Temporal) Review of Systems Constitutional: Negative. HENT: Negative. Eyes: Negative. Respiratory: Negative. Cardiovascular: Negative. Gastrointestinal: Negative. Endocrine: Negative. Genitourinary: Negative. Musculoskeletal: Negative. Skin: Positive for wound. Allergic/Immunologic: Negative. Neurological: Negative. Hematological: Negative. Psychiatric/Behavioral: Negative. Physical Exam Constitutional: Appearance: Normal appearance. HENT: Head: Normocephalic and atraumatic. Cardiovascular: Pulses: Normal pulses. Pulmonary: Effort: Pulmonary effort is normal. Abdominal: General: Abdomen is flat. Palpations: Abdomen is soft. Skin: General: Skin is warm and dry. Findings: Lesion present. Neurological: General: No focal deficit present. Mental Status: He is alert and oriented to person, place, and time. Psychiatric: Mood and Affect: Mood normal. Behavior: Behavior normal. Assessment/Plan BCC of right posterior shoulder s/p excision with clear margins. Clean wound for STSG under GA in OR. [facility] 12-05-2023 Note Patient: Aranza lopez Procedure Information Date/Time: 12/05/23 1300 Procedure: SPLIT-THICKNESS SKIN GRAFT TO RIGHT SHOULDER FROM RIGHT THIGH (Right) - Dermatone Graft Location: [facility]PER[facility] 01 / [facility] Operating Room Surgeons: Felix Hancock MD Relevant Problems Anesthesia denies anesthesia issues; possible MARIS Cardio greater than 4 mets Pulmonary smokes 1 ppd Clinical information reviewed: Tobacco Allergies Meds Problems Med Hx Surg Hx Fam Hx Soc Hx Physical Exam Airway Mallampati: I TM distance: >3 FB Neck ROM: full Cardiovascular - normal exam Dental Comments: Poor dentition, many missing teeth Pulmonary - normal exam Abdominal - normal exam Anesthesia Plan ASA 2 general (Discussed GA/OETT with pt who agrees to proceed.) The patient is a current smoker. Patient smoked on day of procedure. Education provided regarding risk of obstructive sleep apnea. intravenous induction Postoperative administration of opioids is intended. Trial extubation is planned. Anesthetic plan and risks discussed with patient. Use of blood products discussed with patient who consented to blood products. Plan discussed with resident. Additional Equipment Requests [facility] 11-29-2023 Note Medications to take AM day of procedure with sips water only: NONE Medication Hold instructions: NSAIDs (Motrin,Aleve): 5 days prior to procedure Vitamins/Supplements: 5 days prior to procedure IF YOU ARE GOING HOME AFTER YOUR SURGERY OR PROCEDURE, FOR YOUR SAFETY, YOUR SURGERY WILL BE CANCELLED IF BOTH OF THE FOLLOWING ARE NOT AVAILABLE: An adult sheet pile driver operator over the age of 18, that can receive information about your care after surgery, and drive you home. A responsible adult to stay with you for 24 hours in case of an emergency. Can be same as above. The highest risk of complications is within the first 24 hours after sedation/anesthesia. Nothing to eat or drink after midnight the night before surgery. This includes gum, candy, mints, and lozenges. No alcohol, marijuana, or tobacco products including vaping for 24 hours. Please brush your teeth; don't swallow the toothpaste or water. If you use dentures, wear them but do not use paste. Please leave any other removable dental hardware at home. Do not put in contact lenses. Do not wear perfume, make-up, nail tongan, or lotions on the day of your surgery or procedure. Follow skin-prep/wipe instructions as below if required. Bring with you: *Insurance card *Photo ID *Medication list *Co-pay for visit/prescriptions If applicable: *Rescue inhalers *Green bracelet from lab *CPAP or BiPAP machine, if staying overnight *Any braces, splints, or equipment ordered preoperatively *Remote controls for implanted devices Leave at home: *Purse/Wallet/Alvarez- unless needed for co-pay *Cell phone (can leave with family/friend or place in locker if needed) *Jewelry (including piercings and wedding bands) *If not possible, ask the person who is waiting with you to keep them Children under the age of 12 will not be allowed into patient care areas. We will call you between 3pm and 4pm the day before your surgery to give you an arrival time. If you do not receive this call, have any questions, or need to make any changes, please call [phone]. Notify your surgeon if you develop any illness such as a cold, cough, fever, sore throat or vomiting between now and your surgery. Thank you for entrusting us with your care. [facility] Surgical Services Team [facility] 11-24-2023 Note Attestation signed by Felix Hancock MD at 11/24/2023 11:41 AM As the teaching physician, I have personally performed or re-performed the history of present illness, physical exam and medical decision making activities of the encounter and verified the medical student's documentation. I made pertinent changes as necessary to ensure accurate documentation. Subjective Patient ID: Aranza Xavier is a 63 y.o. male who presents for Follow-up ( 2 wk f/u after stich removal). HPI: Patient presents for evaluation for possible skin grafting. He is 4 weeks s/p BCC excision of the right posterior shoulder with integra application and clear margins. He has been dressing the wound daily with packed saline soaked gauze then dressed with a 4x4. Today the wound appears to be healing well. The wound bed is covered with healthy granulation tissue. The integra remains intact. The wound is free of infection or drainage. He would be an excellent candidate for a split thickness skin graft with donor site from the right thigh. The procedure was explained to the patient. He is agreeable. Objective Visit Vitals BP 147/77 (BP Location: Right arm, Patient Position: Sitting, BP Cuff Size: Adult) Pulse 75 Temp 36.7 ???C (98 ???F) (Temporal) Review of Systems Constitutional: Negative. HENT: Negative. Eyes: Negative. Respiratory: Negative. Cardiovascular: Negative. Gastrointestinal: Negative. Endocrine: Negative. Genitourinary: Negative. Musculoskeletal: Negative. Skin: Positive for wound. Allergic/Immunologic: Negative. Neurological: Negative. Hematological: Negative. Psychiatric/Behavioral: Negative. Physical Exam Constitutional: Appearance: Normal appearance. HENT: Head: Normocephalic and atraumatic. Cardiovascular: Pulses: Normal pulses. Pulmonary: Effort: Pulmonary effort is normal. Abdominal: General: Abdomen is flat. Palpations: Abdomen is soft. Skin: General: Skin is warm and dry. Findings: Lesion present. Neurological: General: No focal deficit present. Mental Status: He is alert and oriented to person, place, and time. Psychiatric: Mood and Affect: Mood normal. Behavior: Behavior normal. Assessment/Plan BCC of right posterior shoulder s/p excision with clear margins Wound was packed with saline soaked gauze and dressed with a 4x4. Patient was instructed to continue changing this dressing daily Will be scheduled for split thickness skin graft in 1-2 weeks. Shamika Nawaf, MS3 11/24/23 I was present during the visit and I agree with the treatment plan. [facility] 11-10-2023 Note Subjective Patient ID: Aranza Xavier is a 63 y.o. male who presents for Post-op (S/P right shoulder 10/27/23 suture removal ). HPI: Patient presents for post-op follow up. He is 2 weeks s/p BCC excision of the right posterior shoulder with integra application and clear margins. His dressing and remaining stitches were removed in clinic today. The patient tolerated this well. The integra remains intact. The wound is free of infection or drainage. Gauzed soaked with normal saline was packed into the wound. The wound was covered by a 4x4 and tape. Patient was instructed to change the dressing daily. We will reassess the need for a graft at his next appointment in a couple weeks. Objective Visit Vitals BP 124/86 (BP Location: Left arm, Patient Position: Sitting) Pulse 70 Temp 36.3 ???C (97.4 ???F) (Oral) Review of Systems Constitutional: Negative. HENT: Negative. Eyes: Negative. Respiratory: Negative. Cardiovascular: Negative. Gastrointestinal: Negative. Endocrine: Negative. Genitourinary: Negative. Musculoskeletal: Negative. Skin: Positive for wound. Allergic/Immunologic: Negative. Neurological: Negative. Hematological: Negative. Psychiatric/Behavioral: Negative. Physical Exam Constitutional: Appearance: Normal appearance. HENT: Head: Normocephalic and atraumatic. Cardiovascular: Pulses: Normal pulses. Pulmonary: Effort: Pulmonary effort is normal. Abdominal: General: Abdomen is flat. Palpations: Abdomen is soft. Skin: General: Skin is warm and dry. Findings: Lesion present. Neurological: General: No focal deficit present. Mental Status: He is alert and oriented to person, place, and time. Psychiatric: Mood and Affect: Mood normal. Behavior: Behavior normal. Assessment/Plan BCC of right posterior shoulder s/p excision with clear margins Remaining sutures removed in clinic today Wound was packed with saline soaked gauze and dressed with a 4x4. Patient was instructed to change this dressing daily Return in 2 weeks for evaluation for possible skin grafting I was present during the visit and I agree with the treatment plan. [facility] 11-03-2023 Note Subjective Patient ID: Aranza Xavier is a 63 y.o. male who presents for Post-op (Aranza is here today for a post op visit for BCC right shoulder, s/p 10/27/23 excision of BCC. ). HPI: Patient presents for post-op follow up. He is 1 week s/p BCC excision of the right posterior shoulder with integra application and clear margins. He has kept his arm in a sling for the last week. The packing was removed today in clinic. The integra remains in place with surrounding stitches with 100% take. The wound is free of infection or drainage. Xeroform packing was placed in the wound and dressed with dry gauze. Patient inquired about a skin graft, which he may not need if he heals well. We will reassess the need for a graft in a few weeks. He may discontinue using the sling. Objective Visit Vitals BP (!) 140/91 (BP Location: Left arm, Patient Position: Sitting) Pulse 69 Temp 36.7 ???C (98 ???F) (Temporal) Review of Systems Constitutional: Negative. HENT: Negative. Eyes: Negative. Respiratory: Negative. Cardiovascular: Negative. Gastrointestinal: Negative. Endocrine: Negative. Genitourinary: Negative. Musculoskeletal: Negative. Skin: Positive for wound. Allergic/Immunologic: Negative. Neurological: Negative. Hematological: Negative. Psychiatric/Behavioral: Negative. Physical Exam Constitutional: Appearance: Normal appearance. HENT: Head: Normocephalic and atraumatic. Cardiovascular: Pulses: Normal pulses. Pulmonary: Effort: Pulmonary effort is normal. Abdominal: General: Abdomen is flat. Palpations: Abdomen is soft. Skin: General: Skin is warm and dry. Findings: Lesion present. Neurological: General: No focal deficit present. Mental Status: He is alert and oriented to person, place, and time. Psychiatric: Mood and Affect: Mood normal. Behavior: Behavior normal. Assessment/Plan BCC of right posterior shoulder s/p excision with clear margins Wound was covered with Xeroform packing and covered with dry gauze Patient was instructed to change the dressing on Monday Discontinue using the sling Return in 1 week for stitch removal I was present during the visit and I agree with the treatment plan. [facility] 10-27-2023 Note Patient: Aranza lopez Procedure Summary Date: 10/27/23 Room / Location: [facility] OPERATING ROOM 03 / [facility] Operating Room Anesthesia Start: 1123 Anesthesia Stop: 135 Procedure: EXCISION OF RIGHT POSTERIOR SHOULDER BASAL CELL CARCINOMA WITH FROZEN SECTION EXAMINATION AND INTEGRA APPLICATION- 5.5X5.5 CM (Right) Diagnosis: Basal cell carcinoma (BCC) of right shoulder (Basal cell carcinoma (BCC) of right shoulder [C44.612]) Surgeons: Feilx Hancock MD Responsible Provider: Michael Dimas MD Anesthesia Type: general ASA Status: 3 Anesthesia Type: general Vitals Value Taken Time BP 119/86 10/27/23 1400 Temp 36.4 ???C (97.5 ???F) 10/27/23 1346 Pulse 75 10/27/23 1400 Resp 17 10/27/23 1400 SpO2 97 % 10/27/23 1400 Anesthesia Post Evaluation Patient location during evaluation: PACU Patient participation: complete - patient participated Level of consciousness: awake and alert Pain score: 0 Pain management: adequate Multimodal analgesia pain management approach Airway patency: patent Two or more strategies used to mitigate risk of obstructive sleep apnea Cardiovascular status: hemodynamically stable Respiratory status: room air and nonlabored ventilation Hydration status: euvolemic Patient is hemodynamically stable and is able to be discharged from PACU per anesthesia protocol. There were no known notable events for this encounter. [facility] 10-27-2023 Note Patient: Aranza lopez Procedure Summary Date: 10/27/23 Room / Location: [facility] OPERATING ROOM 03 / [facility] Operating Room Anesthesia Start: 1123 Anesthesia Stop: 135 Procedure: EXCISION OF RIGHT POSTERIOR SHOULDER BASAL CELL CARCINOMA WITH FROZEN SECTION EXAMINATION AND INTEGRA APPLICATION- 5.5X5.5 CM (Right) Diagnosis: Basal cell carcinoma (BCC) of right shoulder (Basal cell carcinoma (BCC) of right shoulder [C44.612]) Surgeons: Felix Hancock MD Responsible Provider: Michael Dimas MD Anesthesia Type: general ASA Status: 3 Anesthesia Post Transport Note Transport to: PACU O2 Route: face mask Oxygen Flow (L/min): 6 Patient Monitor: direct observation Transport: uneventful Patient condition is: stable [facility] 10-27-2023 Note Patient: Aranza lopez Procedure Information Anesthesia Start Date/Time: 10/27/23 1124 Procedure: EXCISION OF RIGHT POSTERIOR SHOULDER BASAL CELL CARCINOMA WITH FROZEN SECTION EXAMINATION AND INTEGRA APPLICATION- 5.5X5.5 CM (Right) - REQUEST 12PM START, REP NOTIFIED 10/22 JK Location: [facility] OPERATING ROOM 03 / [facility] Operating Room Surgeons: Felix Hancock MD Relevant Problems No relevant active problems Clinical information reviewed: Tobacco Allergies Meds Problems Med Hx Surg Hx Fam Hx Soc Hx Physical Exam Airway Mallampati: I TM distance: >3 FB Neck ROM: full Cardiovascular - normal exam Rhythm: regular Rate: normal Dental Pulmonary Abdominal - normal exam Other findings: Current smoker. Anesthesia Plan ASA 3 general The patient is a current smoker. Patient was previously instructed to abstain from smoking on day of procedure. Patient did not smoke on day of procedure. intravenous induction Postoperative administration of opioids is intended. Anesthetic plan and risks discussed with patient and spouse. Plan discussed with resident and medical student. Additional Equipment Requests [facility] 10-27-2023 Note Airway Date/Time: 10/27/2023 11:34 AM Urgency: elective Airway not difficult General Information and Staff Patient location during procedure: OR Anesthesiologist: Michael Dimas MD Performed: other anesthesia staff Learner assisted: RADHA Gamboa Indications and Patient Condition Indications for airway management: anesthesia Spontaneous Ventilation: absent Sedation level: deep Preoxygenated: yes Patient position: sniffing Mask difficulty assessment: 1 - vent by mask Final Airway Details Final airway type: endotracheal airway Successful airway: ETT Cuffed: yes Successful intubation technique: video laryngoscopy Facilitating devices/methods: intubating stylet Endotracheal tube insertion site: oral Blade: Day Blade size: #3 ETT size (mm): 7.0 Cormack-Lehane Classification: grade I - full view of glottis Placement verified by: chest auscultation and capnometry Measured from: lips ETT to lips (cm): 22 Number of attempts at approach: 1 Number of other approaches attempted: 0 [facility] 10-24-2023 Note Medications to take AM day of procedure with sips water only: NONE Medication Hold instructions: NSAIDs (Motrin,Aleve): 5 days prior to procedure Vitamins/Supplements: 5 days prior to procedure IF YOU ARE GOING HOME AFTER YOUR SURGERY OR PROCEDURE, FOR YOUR SAFETY, YOUR SURGERY WILL BE CANCELLED IF BOTH OF THE FOLLOWING ARE NOT AVAILABLE: An adult sheet pile driver operator over the age of 18, that can receive information about your care after surgery, and drive you home. A responsible adult to stay with you for 24 hours in case of an emergency. Can be same as above. The highest risk of complications is within the first 24 hours after sedation/anesthesia. Nothing to eat or drink after midnight the night before surgery. This includes gum, candy, mints, and lozenges. No alcohol, marijuana, or tobacco products including vaping for 24 hours. Please brush your teeth; don't swallow the toothpaste or water. If you use dentures, wear them but do not use paste. Please leave any other removable dental hardware at home. Do not put in contact lenses. Do not wear perfume, make-up, nail tongan, or lotions on the day of your surgery or procedure. Follow skin-prep/wipe instructions as below if required. Bring with you: *Insurance card *Photo ID *Medication list *Co-pay for visit/prescriptions If applicable: *Rescue inhalers *Green bracelet from lab *CPAP or BiPAP machine, if staying overnight *Any braces, splints, or equipment ordered preoperatively *Remote controls for implanted devices Leave at home: *Purse/Wallet/Alvarez- unless needed for co-pay *Cell phone (can leave with family/friend or place in locker if needed) *Jewelry (including piercings and wedding bands) *If not possible, ask the person who is waiting with you to keep them Children under the age of 12 will not be allowed into patient care areas. We will call you between 3pm and 4pm the day before your surgery to give you an arrival time. If you do not receive this call, have any questions, or need to make any changes, please call [phone]. Notify your surgeon if you develop any illness such as a cold, cough, fever, sore throat or vomiting between now and your surgery. Thank you for entrusting us with your care. [facility] Surgical Services Team [facility] 10-20-2023 Note Subjective Patient ID: Aranza Xavier is a 63 y.o. male who presents for Consult (Aranza is here today for a consult visit for basal cell carcinoma of right shoulder. ). HPI: Right posterior shoulder 12-year-old growing basal cell carcinoma. The lesion is ulcerated, tender but not infected. It measures about 4.5 cm in diameter. Recent biopsy proved the nature of a basal cell carcinoma. Review of Systems patient is feeling fine, blood pressure was slightly elevated. He stated that he anxious otherwise his pressure is normal at this time. Objective Visit Vitals BP (!) 169/121 (BP Location: Right arm, Patient Position: Sitting) Pulse 74 Temp 36.5 ???C (97.7 ???F) (Temporal) Review of Systems Constitutional: Negative. HENT: Negative. Eyes: Negative. Respiratory: Negative. Cardiovascular: Negative. Gastrointestinal: Negative. Endocrine: Negative. Genitourinary: Negative. Musculoskeletal: Negative. Skin: Positive for wound. Allergic/Immunologic: Negative. Neurological: Negative. Hematological: Negative. Psychiatric/Behavioral: Negative. Physical Exam 4.5 cm diameter ulcerated basal cell carcinoma on the right posterior shoulder. No bleeding and no infection. Assessment/Plan Patient has a 10-year-old history of ulcerated growing basal cell carcinoma on the right posterior shoulder. He will need wide excision with frozen section. Due to the proximity of the lesion depth to the underlying scapula, the patient may need Integra placement to fill in the defect and to minimize future contraction. After Integra incorporation he will need skin grafting for final coverage. This will be done in the operating room under general anesthesia in the near future. All his questions were answered. He expressed understanding and we will proceed with the scheduling. [facility] 10-04-2023 Note Chief Complaint consultation for skin lesion HPI Staff 63 year old male presents on consultation from Sanjuanita Tao for skin lesion right shoulder. Reports this has been present for 10 years and increasing in size. Reports drainage and odor. History of Present Illness 63 yo male with 10 year h/o enlarging ulcerated lesion right upper back/posterior shoulder; gradually enlarging; sore to the touch, nonhealing, bleeds at time; no previous bx, no h/o other similar lesions; no asa or NSAID use; smokes daily. Review of Systems PHQ Score Initial Depression Screen Score: 0 SCORE ROS - Provider Constitutional: no fever, no sweats, no weight loss. Eyes: no glasses, no blurred vision, no visual loss. ENMT: no dentures, no hoarseness, no swallowing difficulties, no hearing loss, no ear infection(s), no nose bleeds. Cardiovascular: normal blood pressure, no chest pain, regular heartbeat, no heart murmur. Respiratory: no shortness of breath, no cough, no asthma, no wheezing. Gastrointestinal: no nausea, no vomiting, no diarrhea, no constipation, no blood in stool, no change in bowel habits, no abdominal pain, no hepatitis. Genitourinary: no kidney stones, no urine infection, no dysuria. Musculoskeletal: no pain, no weakness. Skin: no changing moles, no rash, yes skin lumps. Neurologic: no seizures, no epilepsy, no headache. Psychiatric: no emotional or psychiatric problem. Heme/Lymph: no bleeding problems, no anemia, no blood clots, no transfusions. Allergy/Immunologic: no swollen lymph nodes/glands, no IV drug abuse. Other: Additional ROS info: Except as noted in the above Review of Systems and in the History of Present Illness, all other systems have been reviewed and are negative or noncontributory. Physical Exam Vitals & Measurements HR: 72(Peripheral) RR: 16 BP: 120/78 HT: 68 in HT: 172.2 cm WT: 54.4 kg WT: 119.68 lb BMI: 18.35 HEENT: normal conjunctiva, sclera clear, no scleral icterus, EOM intact, PERRLA, oral mucosa moist without lesions. Neck: trachea midline, no mass, symmetric, no thyromegaly or nodules, no adenopathy Respiratory: lungs CTA, respirations non labored. Cardiovascular: regular rate and rhythm, no murmur, no pedal edema or varicosities. Lymphatic: no cervical adenopathy, no axillary adenopathy, no supraclavicular adenopathy. Musculoskeletal: normal gait, digits and nails without infection, nodes, cyanosis, clubbing. Skin: no rashes, no lesions, right upper back with 10 cm ulcerated lesion with raised borders; friable; no pigmentation change. Psychiatric/Neuro: oriented to time, place, person, judgement normal, affect appropriate for age, insight intact, no focal deficits. Tests: , review of old records completed , Discussed surgical options, risks, and possible complications with patient. Assessment/Plan 1. Neoplasm of uncertain behavior of skin of back (D48.5: Neoplasm of uncertain behavior of skin) likely skin cancer; full-thickness biopsy obtained at right upper edge under local anesthesia, closed with 4-0 nylon sutures; tolerated well; EBL < 5 ml; will refer to plastic surgery for excision, possible flap closure or skin graft; f/u 1 week for suture removal, call sooner if problems/questions. Follow-up No qualifying data available Problem List/Past Medical History Ongoing BMI less than 19,adult Neoplasm of uncertain behavior of skin of back Skin lesion of back Smoker Historical No qualifying data Procedure/Surgical History Repair of left inguinal hernia, Repair of recurrent right inguinal hernia, Repair of right inguinal hernia. Medications No active medications Allergies No Known Allergies No Known Medication Allergies Social History Alcohol - Denies Alcohol Use, 10/04/2023 Substance Abuse Current, Marijuana, 1-2 times per week, 10/04/2023 Tobacco 10 or more cigarettes (1/2 pack or more)/day in last 30 days Tobacco Use:. Never Smokeless Tobacco Use:. Cigarettes, 1 per day. Started age 18.0 Years. Yes, 10/04/2023 Family History Heart disease: Brother. Immunizations Vaccine Date Status Comments influenza virus vaccine, inactivated - Not Given Patient Refuses [facility] Comment on above: Result Comment: Elec tronically Signed By: Venkat MILLER MD\.br\Date and Time Signed: 10/04/23 13:41 EST Evaluation + Plan note Future Appointments Appointment Date:10/11/2023 03:00:00 PM Scheduled Provider:Venkat MILLER MD Location:[facility] Appointment Type:[facility] 15 General Surgery Mikana Evaluation note No assessment inform ation available [facility] Work Phone: Hospital course Narrative No data available for this section General Surgery Sg Hospital Discharge instructions No data available for this section General Surgery Mikana Progress note No data available for this section General Surgery Mikana Reason for referral (narrative) Referred by: Venkat MILLER MD General Surgery Sg Summary Purpose Family History No Family History Records Found No data available for this section No data available for this section No Family History Records FoundNo Family History Records FoundNo Family History Records FoundNo Family History Records Found Advance Directives No Advanced Directives Records Found Advance Directive Response Recorded Date/ Time Advance Directives No September 13, 2024 10:00am Chief Complaint and Reason for Visit Chief Complaint Admit Date cough September 13, 2024 1 0:04am Additional Source Comments (unrecognized sect ion and content) No Status Records FoundNo Status Records FoundNo Status Records FoundNo Status Records FoundNo Status Records Found INFORMATION SOURCE (unrecogn ized section and content) DATE CREATED AUTHOR 01/20/[address] [facility] DATE CREATED AUTHOR AUTHOR'S ORGANIZ ATION 10/13/2023 [facility] DATE CREATED AUTHOR AUTHOR'S ORGANIZ ATION 12/16/2023 [facility] DATE CREATED AUTHOR AUTHOR'S ORGANIZ ATION 12/24/2023 [facility] DATE CREATED AUTHOR AUTHOR'S ORGANIZ ATION 11/27/2024 [facility] Patient Care team informatio n (unrecognized section and content) Team Status: Active Member Role Status Dates PHYSICIAN NO FAMILY Primary Care Provider Active Team Status: Inactive Member Role Status Dates PHYSICIAN NO FAMILY Primary Care Provider Active Start: October 04, 2023 End: October 04, 2023 Venkat Miller MD FACS Attending Provider Active Start: October 04, 2023 End: October 04, 2023 Team Status: Inactive Member Role Status Dates PHYSICIAN NO FAMILY Primary Care Provider Active Start: September 13, 2024 End: September 13, 2024 Kalyani Munson APRN Attending Provider Active Start: September 13, 2024 End: September 13, 2024 Goals (unrecognized section and content) Goals may be documented in a n alternate section FOR RECORDS PERTAINING TO PATIENTS WHO ARE OR HAVE BEEN ENROLLED IN A CHEMICAL DEPENDENCY/SUBSTANCEABUSE PROGRAM, SOME INFORMATION MAY BE OMITTED. This clinical summary was aggregated from multiple sources. Caution should be exercised in using it in the provision of clinical care. This summary normalizes information from multiple sources, and as a consequence, information in this document may materially change the coding, format and clinical context of patient data. In addition, data may be omitted in some cases. CLINICAL DECISIONS SHOULD BE BASED ON THE PRIMARY CLINICAL RECORDS. [facility]. provides no warranty or guarantee of the accuracy or completeness of information in this document.
== END 2025-05-20 09:51 | disposition home or self-care (01) ==
LOC: CT 09:52
PROVIDERS: PCP Nurse Practitioner Family; Visit Provider Nurse Practitioner Family
DX: R91.1 Solitary pulmonary nodule (principal); J44.9 Chronic obstructive pulmonary disease, unspecified
CPT/HCPCS: 71250

== ENCOUNTER 2025-07-31 17:01 | Emergency (ER) | payer OTHER, SELFPAY ==
--- OUTSIDE RECORDS SUMMARY | 2025-07-23 08:24 | XMS_ITS ---
Author Organization [facility] in [place] Address [address] [place] [address] Care Team Providers Care Web Operations Lead Name Role Phone Dunia Edwards Primary Care Provider [phone] Encounters Encounter Location Date Provider Diagnosis Electronic Health Records [address] [place] [address] 07/23/2025 Dunia Edwards Plan Of Treatment No Information Progress Notes * DUCDamian BRUNODOB:[birth year] (65 yo M)Acc No.[id number]:07/23/2025 Patient:?Damian MARINELLI :1960???Age:65 Y???Sex:MalePhone:[phone] Address:[address] [place] [id number] Subjective: * Chief Complaints: * * Medical History: * Surgical History: * Hospitalization/Major Diagno stic Procedure: * Medications: Objective: * Vitals: * Physical Examination: ??? Assessment: Plan: * Treatment: * Procedure Codes: * Preventive Medicine: ??Screenings/Counseling:?TOBACCO ACTION PLAN?Patient counselled on the dangers of tobacco use and urged to quit.? 11/28/2024 - -Date counseled * true * Date:?Generated for Printing/Faxing/eTransmitting on:?07/31/2025 06:45 PM EST
[2025-07-31 17:23] VITALS: BP 135/87; PULSE 77; TEMP 36.6; O2SAT 99; BMI 19.6
--- NOTE | 2025-07-31 18:25 | PC.NURSE ---
pt c/o right groin pain x1 week ago. pain has radiated to left groin. denies urinary complications and swelling.
--- NOTE | 2025-07-31 18:38 | ED_ITS ---
HPI HPI - General Adult General Chief complaint: Extremity Problem, Nontraumatic Stated complaint: Weakness in L leg Time Seen by Provider: 07/31/25 17:29 Source: patient and family Mode of arrival: walk-in Limitations: no limitations History of Present Illness HPI narrative: Patient is a 65-year-old male recently diagnosed with rheumatoid arthritis that presents with complaints of recent right groin pain that started about 5 to 6 days ago that then extended to the left groin/inguinal area. He denies any fever, night sweats, or chills. He notes that the pain is worse with trying to sit up, coughing or sneezing. He has a history of hernia repair, 2 repairs on the left and 1 on the right at the same time with Dr. Huffman about 3 years ago. He notes no change in his bowel movements. He has also not noticed any new lumps in his groin area such as when he was diagnosed with inguinal hernias. He does not feel as if this pain is in the hip joint. Related Data Allergies Allergy/AdvReac Type Severity Reaction Status Date / Time No Known Drug Allergies Allergy Verified 07/31/25 17:23 Review of Systems ROS Status of ROS 10 or more systems reviewed and unremark able except as noted in history and below PFSH PFSH Social History Little interest or pleasure in doing things: not at all Feeling down, depressed, or hopeless: not at all Exam Narrative Exam Narrative: General: No distress, age-appropriate Skin: Warm, dry, no pallor. No rash. Head: Normocephalic, atraumatic. Neck: Supple, non-tender. Eye: Pupils are equal, round and EOMI. No scleral icterus. Ears, Nose, Mouth, and Throat: No nasal mucosal hypertrophy. Oral mucosa is moist, no posterior oropharynx erythema, uvula is mid-line Cardiovascular: Regular Rate and Rhythm without murmur, gallop or rub. Respiratory: No accessory muscle use or respiratory distress. Lungs are clear to auscultation, no wheezing, rales or rhonchi Chest Wall: no tenderness Back: No midline thoracic or lumbar vertebral tenderness. Musculoskeletal: Full ROM of all extremities, no calf or popliteal tenderness. Negative logroll bilaterally. Full internal/external rotation of bilateral hips, cannot reproduce pain. No pain with palpation of the groin, no bulges felt. GI: Abdomen is soft, non-distended, non tender to palpation. No masses appreciated. No rebound, guarding, or rigidity noted. No inguinal bulges noted on exam or with Valsalva maneuver. Neurological: A&O x4. No cranial nerve dysfunction observed. No truncal ataxia. Moves all extremities. Sensation intact. Psychiatric: Cooperative and interactive. Normal mood and affect. Constitutional Vital Signs, click to edit/add: Last Vital Signs Temp 97.8 F 07/31/25 17:23 Pulse 77 07/31/25 17:23 Resp 16 07/31/25 17:23 BP 145/98 H 07/31/25 21:32 Pulse Ox 99 07/31/25 17:23 O2 Del Method Room Air 07/31/25 17:23 Documenting provider has reviewed patient's vital signs: yes Course Vital Signs Vital signs: Vital Signs Temperature 97.8 F 07/31/25 17:23 Pulse Rate 77 07/31/25 17:23 Respiratory Rate 16 07/31/25 17:23 Blood Pressure 135/87 07/31/25 17:23 Pulse Oximetry 99 07/31/25 17:23 Oxygen Delivery Method Room Air 07/31/25 17:23 Temperature 97.8 F 07/31/25 17:23 Pulse Rate 77 07/31/25 17:23 Respiratory Rate 16 07/31/25 17:23 Blood Pressure 145/98 H 07/31/25 21:32 Pulse Oximetry 99 07/31/25 17:23 Oxygen Delivery Method Room Air 07/31/25 17:23 Medical Decision Making MDM Narrative Medical decision making narrative: The patient is a 65-year-old male with a history of rheumatoid arthritis, p resenting with right groin pain that has been ongoing for 5-6 days and later extended to the left groin/inguinal area. On physical examination, the patient denies fever, chills, or significant changes in bowel habits. CT abdomen/pelvis with contrast reveals a mildly prominent fluid-filled loop of small bowel with wall enhancement, suggesting enteritis, and a small fat- containing right inguinal hernia. There is no evidence of bowel obstruction or other acute pathology. No leukocytosis on CBC, CMP wnl. UA neg for infection. The patient declined pain medication in the ER and expressed interest in managing symptoms without pharmacologic intervention at this time. Given the history of multiple inguinal hernia repairs and the current CT findings, there is concern for a recurrent inguinal hernia, potentially complicated by mild enteritis. The lack of severe symptoms (e.g., bowel obstruction, fever) and normal vital signs at the time of presentation make an acute surgical intervention unnecessary. The patient was referred to a general surgeon for outpatient evaluation of the right inguinal hernia and further management. The patient is instructed to seek immediate care if symptoms worsen or if new signs such as fever, severe pain, or bowel obstruction occur. Pain controlled and patient discharged in stable condition with referral and follow up with General Surgery. Differential Diagnosis Differential Diagnosis: Recurrent inguinal hernia, mesh complication, musculoskeletal strain Lab Data Lab results reviewed: Yes I reviewed the patient's lab results Labs: Lab Results 07/31/25 07/31/25 Range/Units 19:13 20:47 WBC 9.2 (4.0-11.0) 10^3/uL RBC 4.51 L (4.70-6.10) 10^6/uL Hgb 13.4 L (14.0-18.0) g/dL Hct 39.5 L (42.0-54.0) % MCV 87.6 (80.0-94.0) fL MCH 29.7 (25.9-34.0) pg MCHC 33.9 (29.9-35.2) g/dL RDW 13.1 (11.0-15.0) % Plt Count 309 (150-450) 10^3/uL MPV 8.7 L (9.5-13.5) fL Neut % (Auto) 62.9 (43.0-75.0) % Lymph % (Auto) 18.1 L (20.5-60.0) % Vance % (Auto) 9.5 (1.7-12.0) % Eos % (Auto) 7.2 H (0.9-7.0) % Baso % (Auto) 2.0 (0.2-2.0) % Neut # (Auto) 5.8 (1.4-6.5) 10^3/uL Lymph # (Auto) 1.7 (1.2-3.8) 10^3/uL Vance # (Auto) 0.9 H (0.3-0.8) 10^3/uL Eos # (Auto) 0.7 (0.0-0.7) 10^3/uL Baso # (Auto) 0.2 H (0.0-0.1) 10^3/uL Abs Immat Gran (auto) 0.03 (0.00-0.03) 10^3/uL Imm/Tot Granulo (auto) 0.3 (0.0-0.5) % Sodium 135 L (136-145) mmol/L Potassium 3.9 (3.5-5.1) mmol/L Chloride 107 (98-107) mmol/L Carbon Dioxide 24.6 (21.0-32.0) mmol/L Anion Gap 7.3 BUN 22.0 H (7.0-18.0) mg/dL Creatinine 0.71 (0.70-1.30) mg/dL Est GFR ( Amer) >60 (>=60 mL/min/1.73m^2) Est GFR (Non-Af Amer) >60 (>=60 mL/min/1.73m^2) BUN/Creatinine Ratio 31.0 Glucose 90 (74-106) mg/dL Calcium 8.4 L (8.5-10.1) mg/dL Total Bilirubin 0.3 (0.2-1.0) mg/dL AST 29 (15-37) U/L ALT 60 (16-63) U/L Alkaline Phosphatase 85 (46-116) U/L Total Protein 6.9 (6.4-8.2) g/dL Albumin 3.1 L (3.4-5.0) g/dL Globulin 3.8 g/dL Albumin/Globulin Ratio 0.8 Urine Color Yellow (YELLOW) Urine Clarity Clear (CLEAR) Urine pH 6.5 (5.0-9.0) Ur Specific Comstock 1.010 (1.005-1.025) Urine Protein Negative (NEG/TRACE) mg/dL Urine Glucose (UA) Negative (NEGATIVE) mg/dL Urine Ketones Negative (NEGATIVE) mg/dL Urine Occult Blood Negative (NEGATIVE) Urine Nitrite Negative (NEGATIVE) Urine Bilirubin Negative (NEGATIVE) Urine Urobilinogen 2.0 A (0.2-1.0) EU/dL Ur Leukocyte Esterase Negative (NEGATIVE) Imaging Data CT scan - abdomen: Attestation: I have reviewed the pertinent imaging results. Radiologist's impression: ITS Impressions Abdomen/Pelvis CT 07/31/25 18:53 IMPRESSION: Mildly prominent fluid-filled loops of small bowel are noted with wall enhancement suggesting enteritis. There is no evidence of obstruction. There is a normal appendix in the right lower quadrant. There is mild dependent atelectasis. Postoperative changes are noted along the anterior abdominal wall with a small fat-containing right inguinal hernia. Impression dictated by: Vance Mendiola M.D. 07/31/2025 8:24 PM Dictation Location: [place] [address] Electronically authenticated by: [id number] Y Date: 07/31/2025 20:24 Discharge Plan Discharge Chief Complaint: Extremity Problem, Nontraumatic Clinical Impression: Recurrent inguinal hernia Patient Disposition: Home, Self-Care Time of Disposition Decision: 21:13 Condition: Good Mode of Transportation: Private Vehicle Print Language: Cypriot Instructions: Inguinal Hernia (ED) Additional Instructions: Activity * Avoid heavy lifting, straining, or prolonged coughing/sneezing as much as pos sible * Gradually return to normal activity as tolerated * Rest if pain worsens Pain Management * Acetaminophen as needed * NSAIDs (ibuprofen, naproxen) if no contraindications and kidney function is normal * Apply ice or supportive groin compression if comfortable Diet / Hydration * Maintain regular diet if tolerated * Stay hydrated * Watch for new gastrointestinal symptoms (vomiting, diarrhea, constipation) Wound / Hernia Care * Monitor for new bulges, swelling, redness, or tenderness in the groin * Do not attempt to reduce the hernia forcefully if it becomes bulging or pain ful When to Seek Medical Attention Immediately Call 911 or return to the ER if you experience: * Severe or worsening groin/abdominal pain * New or enlarging bulge in the groin * Nausea, vomiting, or inability to pass stool/gas * Fever, chills, or signs of infection * Testicular pain or swelling Follow-Up * General Surgery within the next 1?2 weeks for evaluation of recurrent hernia and management options Referrals: ALPHONSE MARQUEZ V [Physician, General Surgery] - 1-2 weeks NKECHI TAO [Primary Care Provider, [facility]] - 1 week Discharge Date/Time: 07/31/25 21:35
--- OUTSIDE RECORDS SUMMARY | 2025-07-31 18:45 | XMS_ITS | Patient Health Record ---
Author Organization [facility] [place] Address [address] [place] [address] Care Team Providers Care Flight Service Agent Name Role Phone Dunia Edwards Primary Care Provider [phone] Allergies No Known Allergies Results Component Value Reference Range Notes CT chest wo con Reviewed date:01/03/2025 02:51:32 PM Interpretation: Performing Lab: Notes/Report: Source Facility: [place] [address] CT Scan Report Signed Patient: ARANZA XAVIER MR#: [id number] : 1960 Acct:[id number] Age/Sex: 64 / M ADM Date: 12/31/24 Loc: CT Attending Dr: DUNIA EDWARDS Ordering Physician: DUNIA EDWARDS Date of Service: 12/31/24 Procedure(s): CT chest wo con Accession Number(s): [id number] cc: DUNIA EDWARDS [place] [id number] Patient Name: ARANZA XAVIER MRN: [id number] date: 1960 Sex: M Assigned Patient Location: CT Current Patient Location: CT Accession/Order Number: [id number] Exam Date: 12/31/2024 16:18 Report Date: 12/31/2024 16:29 At the request of: DUNIA EDWARDS Procedure: CT chest wo con CT Chest without contrast TECHNIQUE: Axial imaging with 2-D reconstruction. The CT exam was performed using one or more the following dose reduction techniques: Automated exposure control, adjustment of the MA and/or Kv according to patient size, or use of the iterative reconstruction technique. History: Prior imaging demonstrating a right apex nodule. Current smoker COMPARISON: None THYROID: Unremarkable TRACHEA AND BRONCHI: Patent ESOPHAGUS: Unremarkable. HEART: Within normal limits PERICARDIAL EFFUSION: None CORONARY ARTERY CALCIFICATION: Present MEDIASTINUM: No adenopathy. No pneumoperitoneum. No mediastinal hematoma. PULMONARY MAYLIN: No hilar mass or adenopathy is seen. THORACIC AORTA Unremarkable LUNG NODULE right apical right upper lobe calcified granuloma measuring up to 1.5 cm. Adjacent superior cavitary lesion with a thin wall and scarring measuring up to 1.7 cm. 6 mm adjacent nodularity. Extensive right apical bullous emphysematous changes. Similar findings compared to the CT of the cervical spine 11/26/2024 LUNGS: There are marked emphysema. Posterior basilar scarring/fibrosis. PLEURAL EFFUSION: None PNEUMOTHORAX: No pneumothorax seen. CHEST WALL: No abnormality AXILLA:Unremarkable BONY STRUCTURES Intact UPPER ABDOMEN: Images of the upper abdomen are noncontributory. CT/CT chest wo con IMPRESSION: Redemonstration of calcified granuloma with adjacent cavitary thin-walled lesion and tiny 6 mm nodular density. Right apical scarring and bullous changes. Marked emphysematous changes. Posterior basilar fibrotic changes. No additional lung nodules. Consider six-month short-term follow-up assessment. Impression dictated by: Aranza Ross M.D. 12/31/2024 4:29 PM Dictation Location: [facility] Electronically authenticated by: [id number] Y Date: 12/31/2024 16:29 Dictated By: Aranza Ross D.O. Signed By: 12/31/24 1632 DD/ 1629 TD/TT: Tallow Maker: CT chest wo con Reviewed date:05/22/2025 03:34:33 PM Interpretation: Performing Lab: Notes/Report: Source Facility: [facility]-[address] [place] [address] [place] [address] CT Scan Report Signed Patient: ARANZA XAVIER MR#: [id number] : 1960 Acct:[id number] Age/Sex: 65 / M ADM Date: 05/20/25 Loc: CT Attending Dr: DUNIA EDWARDS Ordering Physician: DUNIA EDWARDS Date of Service: 05/20/25 Procedure(s): CT chest wo con Accession Number(s): [id number] cc: DUNIA EDWARDS [place] [address] Patient Name: ARANZA XAVIER MRN: [facility]:[id number] date: 1960 Sex: M Assigned Patient Location: CT Current Patient Location: CT Accession/Order Number: [id number] Exam Date: 05/20/2025 10:01 Report Date: 05/20/2025 10:56 At the request of: DUNIA EDWARDS Procedure: CT chest wo con CT CHEST WITHOUT CONTRAST COMPARISON: 12/31/2024 CLINICAL DATA: Follow-up lung nodularity. Spiral axial unenhanced images were obtained through the chest. Images were reviewed using both narrow and wide window settings. This CT exam was performed using one or more following dose reduction techniques: Automated exposure control, adjustment of the mA and/or kV according to patient size, or use of iterative reconstruction technique. The heart is within normal limits for size. There is no pericardial effusion. Minor coronary disease is seen. No aortic aneurysm is identified. There are small amount of plaque at the aortic arch and proximal great vessels. Similar tiny mediastinal lymph nodes are again visualized. Slight thoracolumbar dextroscoliotic curvature is noted. There are tiny endplate spurs. There is obstructive lung disease with airspace lucencies and subpleural blebs. Scarring is again noted at the right apex. There is also associated calcification and a possible cavitary area, unchanged. There is no developing consolidation or pleural effusion. No pneumothorax is seen. There are similar clustered tiny nodular densities and a calcification within the anterior basilar right upper lobe. A tiny nodular density is again seen within the left lower lobe on axial image 51. There is no new nodularity. Limited cuts through the upper abdomen show no contributory findings. CT/CT chest wo con IMPRESSION: ADVANCED OBSTRUCTIVE LUNG DISEASE. RIGHT APICAL SCARRING WITH ASSOCIATED CALCIFICATION AND POSSIBLE CAVITATION, UNCHANGED FROM THE PRIOR. SIMILAR NODULARITY. Impression dictated by: Margaux Aguilar M.D. 05/20/2025 10:56 AM Dictation Location: [place] [address] Electronically authenticated by: [id number] Y Date: 05/20/2025 10:56 Dictated By: Margaux Aguilar M.D. Signed By: 05/20/25 1059 DD/ 1056 TD/TT: Tallow Maker: Reason For Referral No Information Medications Medication SIG (Take, Route, Frequency, Duration) Notes Start Date End Date Status Diclofenac Sodium 75 MG 1 tablet as need ed Orally Twice a day; Duration: 30 days 5Active Social History Tobacco Use: Social History Observation Description Date Details (start date - stop date) Current Smoker 08/14/1982 - NA Tobacco Use/Smoking Question Answer Notes Patient is a current smoker When did you start smoking?08/14/1982How often do you smoke cigarettes?every day How many cigarettes a day do you smoke?6-10How soon after you wake up do you smoke your first cigarette?6-30 minutesAre you interested in quitting?Not ready to quitAlcohol Screen (Audit-C) Question Answer Notes Did you have a drink containing alcohol in the p ast year? No Cytolw1OltzxuujdtcmjrKqfmcrbkYDYBR-G (Standard) Question Answer Notes Did you have a drink containing alcohol in the p ast year? No Alespl1WgkdjbgjwwiiysSikdgatg Problems Problem Type SNOMED Code ICD Code Onset Dates Problem Status W/U Status Risk Notes Problem Arthritis (0565211) Arthritis (M19.90) ActiveconfirmedProblemSmoker (84447022)Smoker (F17.200)ActiveconfirmedProblem Basal cell carcinoma (2649983)Basal cell carcinoma (C44.91)Activeconfirmed ProblemSolitary nodule of lung (425139911)Lung nodule seen on imaging study (R91.1)Activeconfirmed Vital Signs Blood pressure diastolic 74 mm Hg 04/23/2025 Yvrnyg80 in04/23/2025lood pressure owssgtfr915 mm Hg04/23/20253167Ascodj371.4 lbs 04/23/2025BMI19.52 kg/m204/23/2025 Encounters Encounter Location Date Provider Diagnosis [facility] [address] [place] [address] 11/28/2024 Dunia Edwards Lung nodule seen on imaging study R91.1 [facility] [address] [place] [facility] [place] [place] [address] 12/31/2024 Dunia Edwards Arthritis M19.90 [facility] [address] [place] [facility] [place] [place] [address] 04/23/2025 Dunia Edwards Back pain M54.9 [facility] [address] [place] [facility] [place] [place] [address] 11/28/2024 Duniakarolyn Edwards [facility] [place] [facility] [place] [place] [address] 12/24/2024Pamela [facility] [place] [facility] [place] [place] [address]/23/2025Paamandaa [facility] [address] [place] [facility] [place] [place] [address]/15/2025[facility]ellen [facility]ramerBack [facility] M54.9[facility] [place] [facility] [place] [place] [address] 04/28/2025Paamandaa [facility] [place] [facility] [place] [place] [address]/19/2025Dunia EdwardsLung nodule seen on imaging study [place]91.1[place] [address] [facility] [place] [address] 05/22/2025Dunia [facility] [address] [place], [place] [address]/05/2025Dunia Edwards Assessments Encounter Date Diagnosis (ICD Code) Assessment Notes Treatment Notes Treatment Clinical Notes Section Notes 11/28/2024 Lung nodule seen on imaging stud y (ICD-10 - R91.1) on right12/31/2024rthritis (ICD-10 - M19.90) discussed rheum panel labs also referral to rheum trial of meds, fu as needed 04/23/2025ack pain (ICD-10 - M54.9)04/28/2025ack pain (ICD-10 - M54.9) 05/02/2025Lung nodule seen on imaging study (ICD-10 - R91.1)11/28/2024Other refusing labs, ogmartina at this time wants to address one issue at at time Plan Of Treatment Pending Test Test Name Order Date CT CHEST WO CON 11/28/2024 CT CHEST WO CON 05/02/2025 XR lumbar spine 2-3V 04/23/2025 Insurance Providers Payer Name Payer Address Payer Phone Subscriber Number Group Number Insured Name Patient Relationship to Insured Coverage Start Date Coverage End Date [facility] MED[facility] [address] [address] [facility] [place] [address] [id number] Bhavana Xavier - patient is the [id number] 2023MEDICAID [place] PRIMARY ONLY[address] [place], [place] [id number] Bhavana Xavier - patient is the insured Medical (General) History Medical History History ICD Code Unilateral inguinal hernia, without obstruction or gangrene, not specified as recurrent K40.90 Surgical History Surgery Date(Month/Year) Basal cell skin cancer removal right julia ulder 11/04 bilateral inguinal hernia repair with me 2022 right inguinal hernia repair 2006
--- OUTSIDE RECORDS SUMMARY | 2025-07-31 18:45 | XMS_ITS | Clinical Summary ---
Author Organization [email or web address] tem [id number] [address] [place] [address] Care Team Providers Care Knotting Machine Operator Portable Name Role Phone No Pcp, No Pcp Primary Care Provider Unavailabl e Allergies No known active allergies Medications No known medications Active Problems No known active problems Immunizations ImmunizationAdministration DatesNext SpaYmuh0611/19/2020 Social History Tobacco UseTypesPacks/DayYears UsedDateSmoking Tobacco: Every DaySmokeless Tobacco: NeverAlcohol UseStandard Drinks/WeekCommentsNot Currently0 (1 standard drink = 0.6 oz pure alcohol)ChildcareAnswerDate RecordedChildcareUnknown 01/23/2019EmploymentAnswerDate RxfwvsssCvgzowltlhXxscsvt17/12/2019Hunger ScreeningAnswerDate RecordedWithin the past 12 months we worried whether our food would run out before we got money to buy more.Never True11/26/2024Within the past 12 months the food we bought just didn't last and we didn't have money to get more.Never True11/26/2024Purpose - LifeAnswerDate RecordedPurpose and direction in pxmyKrurajl20/11/2021ex and Gender InformationValueDate Recorded Sex Assigned at BirthNot on fileLegal OtkZfum1703/19/2015 11:35 AM EDTGender IdentityNot on fileSexual OrientationNot on file Last Filed Vital Signs Vital SignReadingTime TakenCommentsBlood Hcdnsvdv973/9411/26/2024 8:52 AM EDT Adlrd5946 8:52 AM LFLSmnvpbjwmqh57.2 ??C (97.2 ??F)11/26/2024 8:52 AM EDTRespiratory Oywp0393 8:52 AM EDTOxygen Tzxnjbukmv10%11/26/2024 8:52 AM EDTInhaled Oxygen Concentration--Wjbqhy59.7 kg (125 lb)11/26/2024 8:52 AM EDT Dlmcna037.2 cm (5' 7 )11/26/2024 8:52 AM EDTBody Mass Index19.58011/26/2024 8:52 AM EDT Plan of Treatment Health MaintenanceDue DateLast DoneCommentsTobacco Zqusmwmkzx1960 Depression Uswthccre33/26/1974Zoster (Shingles) Vaccine (1 of 2)01/07/2012 Influenza Jplngvt1704/14/2025dult BMI Twblrwoom95Tobacco Olfdrsjxp06DTaP,Tdap and Td Vaccines (2 - Td or Tdap) SV ( or age 60+ yrs) (1 - 1-dose 75+ series) 2037 [employer] Not on file Insurance Care Teams Team MemberRelationshipSpecialtyStart DateEnd Date No [place]cp, [place] [address] [facility]/26/24
--- OUTSIDE RECORDS SUMMARY | 2025-07-31 18:45 | XMS_ITS | Clinical Summary ---
Author Organization [facility] Address [address] [place] [address] Care Team Providers Care Education Trainer Name Role Phone Dunia Edwards JAMEL Primary Care Provider [phone] Medications No known medications Active Problems ProblemNoted DateDiagnosed DateBasal cell carcinoma (BCC) of skin of right upper extremity including itjokhfy67/12/0008Eoxorw96asal cell carcinoma (BCC) of right rqcohsij23/08/2024 Family History Medical HistoryRelationNameCommentsParkinsonismFatherHeart diseaseMotherRelation NameStatusCommentsFatherMother Social History Tobacco UseTypesPacks/DayYears UsedDateSmoking Tobacco: Every DayCigarettes Smokeless Tobacco: NeverAlcohol UseStandard Drinks/WeekCommentsNever0 (1 standard drink = 0.6 oz pure alcohol)Humiliation, Afraid, Rape, and Kick questionnaireAnswerDate RecordedWithin the last year, have you been afraid of your partner or ex-partner?No12/22/2023Emotionally AbusedNot on file12/22/2023 Physically AbusedNot on file12/22/2023Sexually AbusedNot on file12/22/2023HQ-2 AnswerDate RecordedPatient Health Questionnaire-2 [id number] Safety & EnvironmentAnswerDate RecordedWithin the last year, have you been afraid of your partner or ex-partner?No12/22/2023Emotionally AbusedNot on file12/22/2023 Physically AbusedNot on file12/22/2023Sexually AbusedNot on file12/22/2023In the past year have you been physically or sexually abused?Unrecognized value 12/22/2023Sex and Gender InformationValueDate RecordedSex Assigned at BirthNot on fileLegal WqlOsjf2110/13/2023 10:00 AM ESTGender IdentityNot on fileSexual OrientationNot on file Last Filed Vital Signs Vital SignReadingTime TakenCommentsBlood Jvweaqua966/8312/22/2023 10:55 AM EDT Fufzp5710/10/2024 10:55 AM GLLIpgnzawqcvz51.5 ??C (97.7 ??F)12/22/2023 10:55 AM EDTRespiratory Wfjt233712/05/2023 3:00 PM EDTOxygen Exwcosnsfr93%12/05/2023 3:00 PM EDTInhaled Oxygen Concentration--Ilpreb74.2 kg (123 lb 12.8 oz)12/22/2023 10:55 AM PDPKwpalp328.2 cm (5' 7 )12/11/2023 11:55 AM EDTBody Mass Index19.39 12/11/2023 11:55 AM EDT Plan of Treatment Health MaintenanceDue DateLast DoneCommentsCT Exsnjdnkilog1962Colonoscopy 2Colorectal Cancer Tmskprlgy1962FIT-DNA1962FIT1962 FOBT6188Bjjsevdbvusmr1962Depression Flhfjygwf23/26/1974Pneumococcal Vaccine: Pediatrics (0 to 5 Years) and At-Risk Patients (6 to 64 Years) (1 of 2 - PCV)1981Zoster Vaccines (1 of 2)01/07/2012COVID-19 Vaccine (1 - season)2025Influenza Vaccine (#1)2025dult Fqpozfu8411/19/2030 11/19/2020HIB VaccinesAged OutNo longer eligible based on patient's age to complete this topicHPV VaccinesAged OutNo longer eligible based on patient's age to complete this topicIPV VaccinesAged OutNo longer eligible based on patient's age to complete this topicMeningococcal B VaccineAged OutNo longer eligible based on patient's age to complete this topicMeningococcal VaccineAged OutNo longer eligible based on patient's age to complete this topicRotavirus Vaccines Aged OutNo longer eligible based on patient's age to complete this topic Medical Devices ImplantedTypeAreaManufacturerDevice IdentifierShelf Expiration DateModel / Serial / LotDressing,Yumiko,2x2 ,5cm - [id number] Implanted:Qty: 1 on 10/27/2023 by [facility]All[facility] TissueRight: ShoulderINTEGRA NEUROSCIENCE 02/10/[id number] / / [id number] Insurance Advance Directives * Full Code (Latest Code Status on File) Date ActivatedDate InactivatedComments12/05/2023 11:28 AM12/05/2023 5:14 PM Care Teams Team MemberRelationshipSpecialtyStart DateEnd Date Dunia Edwards CNP [facility] [address] [place] [address] PCP - GeneralFamily Medicine11/10/23
--- NOTE | 2025-07-31 18:53 | CT_ITS ---
[address] [address] Patient Name: ARANZA MARINELLI MRN: [id number] date: 1960 Sex: M Assigned Patient Location: ER Current Patient Location: ER Accession/Order Number: [id number] Exam Date: 07/31/2025 19:46 Report Date: 07/31/2025 20:24 At the request of: BETO STEVENS Procedure: CT abdomen pelvis w con CT abdomen pelvis w con 07/31/2025 7:56 PM SIGNS AND SYMPTOMS: Left abdominal pain, right groin pain when coughing, history of hernia repair TECHNIQUE: Multidetector ct axial images of the abdomen and pelvis were obtained with IV contrast. Multiplanar reformats were performed and reviewed to further define anatomy and possible pathology. CT was performed with one or more of the following dose reduction techniques: Automated exposure control, adjustment of the mA and/or kV according to patient size, or use of iterative reconstruction technique. COMPARISON: 11/29/2022 FINDINGS: Lower Chest: There is mild dependent atelectasis. ABDOMEN: Liver: Within normal limits. Bile Ducts: Normal caliber. Gallbladder: No calcified gallstones. Normal caliber wall. Pancreas: Within normal limits. Spleen: Within normal limits. Adrenals: Within normal limits. Kidneys: Within normal limits. Pelvis: Reproductive Organs: No pelvic masses. Ureters: Within normal limits. Bladder: Within normal limits. Bowel: There is a normal appendix in the right lower quadrant. Mildly prominent fluid-filled loops of small bowel are noted with wall enhancement suggesting enteritis. There is no evidence of obstruction. Mesenteric Lymph Nodes: No enlarged mesenteric lymph nodes. Peritoneum: No ascites or free air, no fluid collection. Vessels: Atherosclerotic changes are noted in the abdominal aorta and its branches. Retroperitoneum: Within normal limits. Abdominal Wall: Postoperative changes are noted along the anterior abdominal wall with a small fat-containing right inguinal hernia. Bones: Degenerative changes are noted in the thoracolumbar spine. CT/CT abdomen pelvis w con IMPRESSION: Mildly prominent fluid-filled loops of small bowel are noted with wall enhancement suggesting enteritis. There is no evidence of obstruction. There is a normal appendix in the right lower quadrant. There is mild dependent atelectasis. Postoperative changes are noted along the anterior abdominal wall with a small fat-containing right inguinal hernia. Impression dictated by: Vance Mendiola M.D. 07/31/2025 8:24 PM Dictation Location: [place] [address] Electronically authenticated by: [id number] Y Date: 07/31/2025 20:24
[2025-07-31 19:19] LABS: Hematocrit 39.5 % (42.0-54.0); Hemoglobin 13.4 g/dL (14.0-18.0); Immature Granulocytes Abs Auto 0.03 10^3/uL (0.00-0.03); Immature Granulocytes Pct Auto 0.3 % (0.0-0.5); Lymphocytes Absolute Auto 1.7 10^3/uL (1.2-3.8); Mean Corpuscular HGB Conc 33.9 g/dL (29.9-35.2); Mean Corpuscular Hemoglobin 29.7 pg (25.9-34.0); Mean Corpuscular Volume 87.6 fL (80.0-94.0); Platelet Count 309 10^3/uL (150-450); Red Blood Count 4.51 10^6/uL (4.70-6.10); White Blood Count 9.2 10^3/uL (4.0-11.0)
[2025-07-31 19:35] LABS: Alanine Aminotransferase 60 U/L (16-63); Albumin Globulin Ratio 0.8; Albumin Level 3.1 g/dL (3.4-5.0); Alkaline Phosphatase 85 U/L (46-116); Anion Gap 7.3; Aspartate Amino Transferase 29 U/L (15-37); Blood Urea Nitrogen 22.0 mg/dL (7.0-18.0); Calcium 8.4 mg/dL (8.5-10.1); Carbon Dioxide 24.6 mmol/L (21.0-32.0); Chloride 107 mmol/L (98-107); Estimated GFR (African America >60 (>=60 mL/min/1.73m^2); Estimated GFR (Non-African Ame >60 (>=60 mL/min/1.73m^2); Globulin 3.8 g/dL; Glucose 90 mg/dL (74-106); Potassium 3.9 mmol/L (3.5-5.1); Sodium 135 mmol/L (136-145); Total Protein 6.9 g/dL (6.4-8.2)
[2025-07-31 20:56] LABS: Glucose Urine UA NEGATIVE (NEGATIVE)
[2025-07-31 21:32] VITALS: BP 145/98
== END 2025-07-31 21:35 | disposition home or self-care (01) ==
PROVIDERS: Physician Assistant; Emergency Provider Emergency Medicine; PCP Nurse Practitioner Family
DX: K40.91 Unilateral inguinal hernia, without obstruction or gangrene, recurrent (principal); M06.9 Rheumatoid arthritis, unspecified
CPT/HCPCS: 36415; 74177; 80053; 81003; 85025; 99284; Q9967